=== PATIENT | female | born 1945 | race Caucasian/White ===

== ENCOUNTER → 2017-01-25 | Outpatient (CLI) | payer OTHER ==
[~2017-01-25] MED LIST: DOCU1CAP60 PO; SULF800T23 PO; ULT50X PO
--- NOTE | 2017-01-25 11:38 | DIAGNOSTIC IMAGING REPORT ---
RIGHT KNEE 2 VIEWS HISTORY: Right knee pain and tenderness. Fall. COMPARISON: None. FINDINGS: AP view of the bilateral knees and lateral view of the right knee. Small joint effusion. The bones are osteopenic. No fracture or dislocation within the right knee. Mild osteoarthritis at the medial and patellofemoral compartments. There is also mild osteoarthritis within the medial compartment of the left knee. No radiopaque foreign bodies. IMPRESSION: 1. No fractures within the right knee. 2. Mild osteoarthritis. 3. Small right knee effusion. Electronically signed by: Abner Avina M.D. 01/25/2017 11:36 AM Dictated Date/Time: 01/25/2017 11:35 AM
== END | disposition home or self-care (01) ==
LOC: C.RAD 11:11
PROVIDERS: ATTEND Family Medicine
DX: M25.561 Pain in right knee (principal); M25.461 Effusion, right knee

== ENCOUNTER → 2017-07-17 | Outpatient (CLI) | payer OTHER ==
[~2017-07-17] MED LIST changes: +OPTIRAY 320 IV PRN
--- NOTE | 2017-07-17 08:36 | DIAGNOSTIC IMAGING REPORT ---
CT SCAN OF THE ABDOMEN AND PELVIS COMBO RENAL MASS PROTOCOL CLINICAL HISTORY: Follow-up renal lesion. Abdominal aortic aneurysm. COMPARISON STUDY: Abdominal CT scans dated 04/26/2016, 11/22/2013, and 03/12/2015. TECHNIQUE: Before and following the IV administration of 92 cc of Optiray 320, CT scan of the abdomen and pelvis is performed from the lung bases to the proximal femora using the renal mass protocol. Images are reviewed in the axial, sagittal, and coronal planes. IV contrast was administered without complication. Automated dose control exposure was utilized. FINDINGS: Lung bases: The heart is mildly enlarged and without pericardial effusion. The aortic valve leaflets and coronary arteries are calcified. An 13 mm right lower lobe pulmonary nodule seen on image #29 has only minimally increased in size dating back to 2013. No new pulmonary lesions are seen in either lung base. There is dependent atelectasis and subpleural articulation. No airspace consolidation or pleural effusion is seen at the lung bases. Liver: The contrast-enhanced liver is normal in size, contour, and attenuation. There is no intrahepatic biliary ductal dilatation. The hepatic veins and portal veins are patent. A subcentimeter hypodensity in the right lobe on image #89 is unchanged. Likely represents a cyst but is too small for definitive characterization. Gallbladder: Unremarkable. Spleen: Spleen is normal in size and attenuation. Cystic foci in the spleen measuring up to 1.8 cm are of doubtful significance. Pancreas: Moderately atrophic. Adrenal glands: A 2.7 cm left adrenal adenoma is unchanged. The right adrenal gland is unremarkable. Kidneys: No renal calculi are identified on the unenhanced series. The contrast enhanced kidneys demonstrated cortical atrophy and are without hydronephrosis. The kidneys enhance and excrete symmetrically. No enhancing cortical mass is identified. A 2.6 cm lesion in the upper pole the right kidney seen on image #155 is unchanged. This does not show clear evidence of contrast enhancement and likely represents a complex cyst. This has only minimally increased in size from 2013. Additional subcentimeter cortical hypodensities also likely represent cysts but are too small for definitive characterization. Additionally, there is a fat density lesion arising from the lower pole of the left kidney. This measures approximately 5.5 x 6 x 5 cm. This is similar in appearance to prior examinations and typical in appearance for a large angiomyolipoma. There is no evidence of urothelial lesion within the renal pelvis bilaterally or along the course of ureters. The proximal left ureter is not well opacified by excreted contrast. Abdominal vasculature: There is advanced atherosclerotic calcification of the abdominal aorta. There is diffuse ectasia of the abdominal aorta. Again seen is an aneurysm of the proximal abdominal aorta at and just below the level of the esophageal hiatus. This measures up to 3.7 cm in AP diameter and 4.5 cm in transverse diameter. 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 A small dissection is also seen in the distal abdominal aorta on image #208. These are unchanged from previous. Bowel: Moderate fecal retention is noted throughout the colon. No bowel obstruction is seen. The appendix is well-visualized and normal. Peritoneum: There is no intraperitoneal free air or abdominal ascites. Lymphadenopathy: None. Pelvic viscera: The bladder, uterus, and adnexa are normal as visualized. Skeletal structures: The skeletal structures are osteopenic. There is mild lumbosacral spondylosis. No lytic or blastic lesions are seen. Soft tissues: A 2.1 cm sebaceous cyst is again seen in the lower back on image #70. IMPRESSION: 1. There are no acute infectious or inflammatory findings in the abdomen or pelvis. 2. 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 3. Advanced atherosclerotic disease is again noted. A 3.7 x 4.5 cm aneurysm of the proximal abdominal aorta has modestly increased in size from 04/26/2016. 4. 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 5. Unchanged appearance of a 2.6 cm complex cyst in the upper pole of the right kidney. 6. A pathologically indeterminant 13 mm right lower lobe pulmonary nodule has only minimally increased in size dating back to 2013. A low-grade lesion such as carcinoid could have this appearance. At a minimum, continued follow-up is recommended. 7. Additional findings as above. Electronically signed by: Ed uK M.D. 07/17/2017 8:35 AM Dictated Date/Time: 07/17/2017 8:20 AM
--- NOTE | 2017-07-17 08:38 | DIAGNOSTIC IMAGING REPORT ---
(CHEST) THORAX WITH CLINICAL HISTORY: 72 years-old Female presenting with R91.1 Lung nodule, solitary, Last CT chest 04/26/17.[id number]. TECHNIQUE: Multidetector CT imaging of the chest was performed after the administration of intravenous contrast. IV contrast: 92 mL of Optiray 320. A dose lowering technique was used consistent with the principles of ALARA (as low as reasonably achievable). COMPARISON: 04/26/2016. CT DOSE (mGy.cm): The estimated cumulative dose is 3253.43 mGy.cm. FINDINGS: [employer] Sousaphones topogram: Unremarkable. On soft tissue windows, normal thyroid and thoracic inlet. No axillary, supraclavicular, hilar, or mediastinal lymphadenopathy. Extensive calcified and noncalcified atherosclerotic plaque throughout the thoracoabdominal aorta. There is mild stenosis of the origin of the left subclavian artery (less than 50% stenosis). Extensive mural thrombus/noncalcified intimal plaque along the descending thoracic aorta with tortuosity. Fusiform aneurysmal dilatation of the mid descending thoracic aorta measures up to 4.2 cm in diameter. Additional partially visualized aneurysmal dilatation of the abdominal aorta at the level of the superior mesenteric artery measuring 4.2 cm in diameter. Normal heart size. Coronary artery and aortic valve calcification. No pericardial or pleural effusion. 2.7 cm cystic-appearing lesion in the medial limb of the left adrenal gland, likely adrenal cyst. Upper abdomen otherwise unremarkable. On lung windows, trace apical emphysema greater on the right. Solid 11 mm pulmonary nodule in the central right lower lobe (series 6 image 194) with smooth margins unchanged from prior exam. This nodule appears to contain fairly low-density foci (for example -32 Hounsfield units), which could suggest the presence of macroscopic fat. No new pulmonary nodule or infiltrate. Airways patent. On bone windows, normal osseous structures. IMPRESSION: 1. Stable 11 mm solid pulmonary nodule in the right lower lobe. This has features which could suggest a benign hamartoma. Follow-up per [place] Society 2017 recommendations below. 2. Extensive atherosclerosis with aneurysmal dilatation of the descending thoracic and proximal abdominal aorta. Please refer to below summary of Fleischner Society 2017 recommendations for follow-up of incidental CT nodules (H Janette et al. Guidelines for management of incidental pulmonary nodules detected on CT images: From the Fleischner Society 2017. Radiology 2017; 284: 228-243.) SOLID NODULES Single nodule; size < 6 mm * Low risk patients: No routine follow-up * High risk patients: Optional CT at 12 months Single nodule; size 6-8 mm * Low risk patients: CT at 6-12 months, then consider CT at 18-24 months * High risk patients: CT at 6-12 months, then at 18-24 months Single nodule; size > 8 mm * Either low or high risk patients: Considered CT at 3 months, PET/CT, or tissue sampling Multiple nodules; size < 6 mm * Low risk patients: No routine follow up * High risk patients: Optional CT at 12 months Multiple nodules; size 6-8 mm * Low risk patients: CT at 3-6 months, then consider CT at 18-24 months * High risk patients: CT at 3-6 months, then at 18-24 months Multiple nodules; size > 8 mm * Low risk patients: CT at 3-6 months, then consider at 18-24 months * High risk patients: CT at 3-6 months, then at 18-24 months Note: These guidelines apply to incidental nodules. These guidelines do not apply to patients younger than 35 years, immunocompromised patients, or patients with cancer. * Low risk patients: Minimal or absent history of smoking and/or other known risk factors * High risk patients: History of smoking, exposure to other carcinogens, emphysema, fibrosis, upper lobe location, family history of lung cancer, etc. * If a nodule up to 8 mm is partly solid or is ground glass, further follow-up is required after 24 months to exclude possible slow growing adenocarcinoma. SUBSOLID NODULES Single ground-glass nodule * Nodule size < 6 mm: No routine follow-up * Nodule size > or = 6 mm: CT at 6-12 months to confirm persistence, then CT every 2 years until 5 years Single part-solid nodule * Nodule size < 6 mm: No routine follow-up * Nodules size > or = 6 mm: CT at 3-6 months to confirm persistence. If unchanged and solid component remains < 6 mm, annual CT should be performed for 5 years Multiple nodules * Nodule size < 6 mm: CT at 3-6 months. If stable, consider CT at 2 and 4 years. * Nodules size > or = 6 mm: CT at 3-6 months. Subsequent management based on the most suspicious nodule(s) Electronically signed by: Adarsh Reed M.D. 07/17/2017 8:36 AM Dictated Date/Time: 07/17/2017 8:17 AM
--- NOTE | 2017-07-17 09:28 | DIAGNOSTIC IMAGING REPORT ---
ULTRASOUND OF THE CAROTID ARTERIES CLINICAL HISTORY: Carotid bruit. COMPARISON STUDY: Carotid artery ultrasound dated 08/11/2014. TECHNIQUE: Real-time, grayscale, and color Doppler sonography of the carotid arteries is performed. Images are reviewed in the transverse and longitudinal planes. FINDINGS: Blood pressures were not assessed. The carotid arteries are patent bilaterally and demonstrate antegrade flow. There is minimal atherosclerotic plaque identified. Normal doppler arterial waveforms are seen throughout. There is tortuosity of the internal carotid artery bilaterally. Velocity measurements are listed below. Common carotid peak systolic velocity (cm/sec): RIGHT: 76 LEFT: 66 ICA proximal peak systolic velocity (cm/sec): RIGHT: 53 LEFT: 37 ICA mid peak systolic velocity (cm/sec): RIGHT: 43 LEFT: 37 ICA distal peak systolic velocity (cm/sec): RIGHT: 97 LEFT: 122 ICA/CC peak systolic ratio: RIGHT: 1.3 LEFT: 1.8 Antegrade flow was shown in the vertebral arteries. The external carotid arteries are patent. IMPRESSION: 1. There is no sonographic evidence of hemodynamically significant stenosis in the right or left carotid arterial system. 2. Antegrade flow is shown in the vertebral arteries. 3. Top normal velocities within the distal left internal carotid artery are unchanged and likely related to vascular tortuosity. Electronically signed by: Ed Ku M.D. 07/17/2017 9:27 AM Dictated Date/Time: 07/17/2017 9:24 AM
== END | disposition home or self-care (01) ==
LOC: C.CTS 07:36
PROVIDERS: ATTEND Surgery
DX: R91.1 Solitary pulmonary nodule (principal); I71.4 Abdominal aortic aneurysm, without rupture; R09.89 Other specified symptoms and signs involving the circulatory and respiratory systems; D17.71 Benign lipomatous neoplasm of kidney; N28.1 Cyst of kidney, acquired

== ENCOUNTER → 2018-02-05 | Outpatient (CLI) | payer OTHER ==
[~2018-02-05] MED LIST changes: -OPTIRAY 320 IV PRN
[2018-02-05 10:04] LABS: BLOOD UREA NITROGEN 11 mg/dl (7-18); CALCIUM 9.1 mg/dl (8.5-10.1); CARBON DIOXIDE 27 mmol/L (21-32); CHOLESTEROL 214 mg/dl (0-200); CREATININE 0.83 mg/dl (0.60-1.20); GLUCOSE 90 mg/dl (70-99); LDL CHOLESTEROL CALCULATED 149 mg/dl; POTASSIUM 4.3 mmol/L (3.5-5.1); SODIUM 139 mmol/L (136-145)
== END | disposition home or self-care (01) ==
LOC: C.LAB 08:20
PROVIDERS: ATTEND Family Medicine
DX: Z00.00 Encounter for general adult medical examination without abnormal findings (principal); I71.4 Abdominal aortic aneurysm, without rupture

== ENCOUNTER 2021-07-30 16:09 | Inpatient (IN) ==
[2021-07-30] MEDS ORDERED: SODIUM CHLORIDE 0.9% 500 ML IV ONE (18:31)
[2021-07-30] MEDS ORDERED: ONDANSETRON INJ 2 MG/ML 2 ML VIAL IV STA ×2 (18:31→20:14)
[2021-07-30 18:32] LABS: Basophils # (auto) 0.04 K/uL (0-0.2); Basophils % (auto) 0.3 %; Eosinophils # (auto) 0.26 K/uL (0-0.5); Eosinophils % (auto) 2.2 %; Hemoglobin 9.2 g/dL (12.0-16.0); Immature Granulocytes # (auto) 0.04 K/uL (0.00-0.02); Immature Granulocytes % (auto) 0.3 %; Lymphocytes # (auto) 1.92 K/uL (1.2-3.4); Lymphocytes % (auto) 15.9 %; Mean Corpuscular Hemoglobin 23.8 pg (25-34); Mean Corpuscular Hgb Conc 29.7 g/dL (32-36); Mean Corpuscular Volume 80.1 fL (80-100); Mean Platelet Volume 9.8 fL (7.4-10.4); Monocytes # (auto) 0.87 K/uL (0.11-0.59); Monocytes % (auto) 7.2 %; Neutrophils # (auto) 8.91 K/uL (1.4-6.5); Neutrophils % (auto) 74.1 %; Platelet Count 620 K/uL (130-400); RDW Coefficient of Variation 17.4 % (11.5-14.5); RDW Standard Deviation 51.2 fL (36.4-46.3); Red Blood Count 3.87 M/uL (4.2-5.4); White Blood Count 12.04 K/uL (4.8-10.8)
--- NOTE | 2021-07-30 18:36 | Emergency Department Note ---
Impression & Plan Acute GI bleeding, Diffuse abdominal pain, Acute dehydration ED Provider Note Name: DUDLEY BENITEZ Age: 76 Sex: F Arrives Via: Walk-In Informant: Patient, Daughter ED Provider: Armando Wilcox MD Chief Complaint: Abdominal Pain Impression: As per impressions above Medical Decision Making: Pleasant 76-year-old female with extensive past medical history. She arrives for evaluation of abdominal pain. She is several weeks post thoracic aneurysm endograft repair via the right groin. She notes worsening abdominal pain since then with black and bloody stools. She has also had issues with constipation over the last 2 weeks. On examination she is uncomfortable appearing but does not have peritonitis of her abdomen. She was ordered a CT of the abdomen pelvis which is negative for any acute findings other than inflammation of the right groin consistent with the access site for her endograft. Her labs show mildly worsened anemia from her baseline of 10 however not to the point of anemia she was with her previous GI bleed about 6 months ago. Patient is on Eliquis however she has not had in the last 2 to 3 days due to running out of it. Patient was given IV Protonix, IV fentanyl, fluids for management of GI bleed and pain and dehydration. Given the GI bleed while taking a blood thinner and her severe GI bleed in the past I do feel it is reasonable for hospitalization. I discussed this with the hospitalist who is on board with plan. Is not completely clear why she is having the metabolic pain that she is but there is no evidence of ischemic bowel at this point. Stool is tarry rather than grossly bloody though ischemic colitis is possible. Without other findings I do not think that is required to have a general surgeon evaluate her quite at this point. Prior Medical Record and Triage/Nursing Notes reviewed by Me Additional history obtained from chart Differentials:Appendicitis, infections, diverticulitis, UTI, obstruction, mesenteric ischemia, aortic pathology, inflammatory bowel disease, renal colic, PUD, pancreatitis, biliary pathology, hernia, volvulus, constipation, as well as other pathologies. amongst other pathologies. Vital Signs: reviewed and remarkable for HTN Interventions: Saline lock, normal saline bolus, Protonix IV, fentanyl IV, Zofran IV, normal saline bolus IV Labs:Reviewed and remarkable for anemia Imaging:CT of abdomen pelvis as per radiologist read below. No acute findings other than inflammation within the right groin EKG:Per My Interpretation: Indication Abdominal pain: sinus Tachy 102 bpm, qtc 445. No Ectopy. No Ischemia. Compared to EKG 08/10/19, no significant changes. Consults:Dr Samy BERKOWITZ Hospitalist Plan: Disposition:Hospitalization. Condition: Good History of Present Illness:76-year-old female arrives for evaluation of abdominal pain. Patient notes she had a thoracic aneurysm which was repaired via endograft 3 weeks ago. Shortly after that abdominal pain began. She notes worsening abdominal pain after the last 2 weeks. Associated with increasing swelling and pain. Associated with severe constipation and eventually had a black tarry bowel movement about 1 week ago. Since then she is only had small stool balls that are sticky and black. She notes due to worsening pain and nausea she called her surgeon who offered to call the in [facility] however patient has not gotten this yet. She went to see her PCP today who evaluated her. PCP did a rectal exam and noted bloody stool. Patient was sent to ER for evaluation and management. Patient states she was advised to get a CT scan of the abdomen and pelvis by her PCP. Patient states her pain just continues to get worse. Daughter notes patient continuously is belching but is not vomiting. Patient denies any chest pain, shortness of breath, syncope, headache, neck pain, leg swelling, calf pain, rashes, other bleeding/bruising, vomiting or other symptoms. Patient has had no recent fevers nor runny nose nor sore throat. Patient notes eating makes symptoms worse and just staying still makes them better. She has had no pain or nausea medications prior to arrival. Patient is on Eliquis and has a history of significant GI bleeding in the past. She denies any recent falls, trauma, or injuries. She last took her Eliquis 2 days ago. ROS: See above HPI for pertinent positives & negatives. A total of 10 systems reviewed and were otherwise negative. Past Medical History:See Below Past Surgical History:See Below Family History:See Below Social History:See Below Home Medications:See Below Allergies:fish products Vitals:Blood Pressure: 146/90, Pulse 98, RR 20, T 36.9C, O2 96% on RA Physical Exam: GENERAL: Patient is tired/uncomfortable appearing and in moderate distress. EYES: No scleral icterus, unremarkable pupils. ENT: Mucous membranes moist, no nasal congestion. NECK: No masses appreciated, nomeningismus, trachea is midline. RESPIRATORY: No dyspnea. Clear to auscultation and equal bilaterally. No wheeze, no rhonchi. CARDIOVASCULAR: Regular rate and rhythm.Systolic murmur. No rubs, no gallops appreciated. GASTROINTESTINAL: Hypoactive bowel sounds, diffuse mild TTP worse left upper abdomen. Abdomen soft, no peritonitis.Bowel sounds positive.No masses a ppreciated. BACK: No midline tenderness, no CVA tenderness EXTREMITIES: Normal motion all extremities, no cyanosis, no edema. NEUROLOGIC: Alert and oriented, no acute motor or sensory deficits, no focal weakness, cranial nerves grossly intact. SKIN: No rash, no jaundice, no diaphoresis. PSYCH: Appropriate GCS: 15 ED Course: Times/Reassessments: Patient was initially seen and evaluated in the subwaiting room due to extreme volumes and no available ER beds for evaluations. She was eventually moved to bed and further evaluated. Work-up as above. She is starting to feel better hospitalist consulted and she is on board with hospitalization. Armando Wlicox MD Past Med/Surg History Medical History (Updated 07/31/21 @ 01:12 by Armando Wilcox MD) Age related osteoporosis Anemia Angiomyolipoma of left kidney Ascending aortic aneurysm 6.2cm with Ao arch thrombus 05/06/20 on chronic Eliquis Atrial tachycardia Cardiomyopathy Carotid bruit follows at [facility] COPD, mild COVID-19 virus detected 08/26/20 Degenerative disc disease Elevated IOP Hx of aortic aneurysm reason for eliquis--following with [facility] Lung nodule, solitary Obesity (BMI 30-39.9) On anticoagulant therapy eliquis bid Pulmonary emphysema mild, no inhalers/nebulizer or oxygen Pyelonephritis Smoker unmotivated to quit Spinal stenosis, lumbar region with neurogenic claudication Worst at L4-5 Tobacco abuse counseling Surgical History History of bilateral tubal ligation (1972) History of cataract surgery bilt History of colonoscopy with polypectomy History of incision and drainage (2016) sebaceous cyst mid back History of removal of cyst off kidney--benign History of tooth extraction all teeth History of wisdom tooth extraction Family History Brother Cancer Father Alcoholism Myocardial infarction Sister Crohn's disease DVT of leg (deep venous thrombosis) Mother Hyperlipidemia Daughter Muscular dystrophy Other No family history of adverse response to anesthesia Denies family history of Ovarian cancer Prostate cancer Breast cancer Colorectal cancer Social History Smoking Status: Current every day smoker Cigarettes Per Day: 10 a day; Second Hand Exposure: No; Hx Alcohol Use: No Hx Substance Use: No Preferred Language: Bulgarian Communication Ability: Effective Visual Impairment: No Limitations Hearing Ability: Normal Restaurant Inspector Required: No Beliefs That Will Affect Care: None Current Living Situation: Alone current occupational status: retired Feels Safe at Home: Yes Childhood Exposure to Second-Hand Smoke: Yes Dental Care, Regularly: No Physical Activity Frequency: Daily Physical Activity Frequency Comment: has dentures Seatbelt Use: always Sunscreen Use: No Assistive Devices: Denture - Upper, Denture - Lower and Glasses Allergies Allergies Allergy/AdvReac Type Severity Reaction Status Date / Time Fish Containing Products Allergy Severe SWELLING Verified 07/30/21 20:49 THROAT Home Meds Home Medications Medication Instructions Recorded Confirmed ferrous sulfate 325 mg (65 mg 325 mg PO QAM 08/17/20 07/30/21 iron) tablet apixaban 5 mg tablet (Eliquis) 5 mg PO BID tab 08/20/20 07/30/21 aspirin 81 mg tablet,delayed 81 mg PO QAM 08/20/20 07/30/21 release (Adult Aspirin Regimen) atorvastatin 40 mg tablet 40 mg PO QAM 08/20/20 07/30/21 lisinopril 10 mg tablet 10 mg PO QAM 08/25/20 07/30/21 nitroglycerin 0.4 % (w/w) rectal 1 inch NH BID PRN 08/25/20 07/30/21 ointment Previous Rx's Medication Instructions Recorded hydrocortisone 2.5 % topical cream 1 applic NH DAILY PRN #30 g 07/30/21 with perineal applicator metoprolol tartrate 50 mg tablet 50 mg PO BID #60 tab 07/30/21 Results & Data (ED) Vital Signs Vital Signs - 24 hr 07/30/21 16:28 07/30/21 20:45 07/30/21 20:50 Temperature 36.9 C Temperature Source Oral Pulse Rate 98 H 109 H 112 H Pulse Rate from SpO2 Sensor 109 H 107 H Pulse Rhythm Regular Pulse Strength Normal Respiratory Rate 20 18 18 Respiratory Effort / Characteristics Non-Labored Spontaneous Respiratory Depth Normal Respiratory Pattern Regular Blood Pressure 146/90 H Blood Pressure Mean 108 Blood Pressure Position Sitting Pulse Oximetry 96 93 93 Oxygen Delivery Method Room Air Sepsis Recent Fever Within 48 Hours No Sepsis New/Unexplained Change in Mental Status No Sepsis Action Taken by Nursing No Action Required 07/30/21 20:56 07/30/21 21:00 07/30/21 21:10 Temperature Temperature Source Pulse Rate 105 H 108 H 105 H Pulse Rate from SpO2 Sensor 105 H 108 H 106 H Pulse Rhythm Pulse Strength Respiratory Rate 15 18 30 H Respiratory Effort / Characteristics Respiratory Depth Respiratory Pattern Blood Pressure 165/89 H 154/92 H Blood Pressure Mean 114 112 Blood Pressure Position Pulse Oximetry 91 96 96 Oxygen Delivery Method Sepsis Recent Fever Within 48 Hours Sepsis New/Unexplained Change in Mental Status Sepsis Action Taken by Nursing 07/30/21 21:20 Temperature Temperature Source Pulse Rate 104 H Pulse Rate from SpO2 Sensor 103 H Pulse Rhythm Pulse Strength Respiratory Rate 18 Respiratory Effort / Characteristics Respiratory Depth Respiratory Pattern Blood Pressure Blood Pressure Mean Blood Pressure Position Pulse Oximetry 97 Oxygen Delivery Method Sepsis Recent Fever Within 48 Hours Sepsis New/Unexplained Change in Mental Status Sepsis Action Taken by Nursing Laboratory Data Result diagrams: 07/30/21 18:11 07/30/21 18:11 Lab Results 07/30/21 07/30/21 07/30/21 Range/Units 18:11 18:11 20:57 WBC 12.04 H (4.8-10.8) K/uL RBC 3.87 L (4.2-5.4) M/uL Hgb 9.2 L (12.0-16.0) g/dL Hct 31.0 L (37-47) % MCV 80.1 (80-100) fL MCH 23.8 L (25-34) pg MCHC 29.7 L (32-36) g/dL RDW Std Deviation 51.2 H (36.4-46.3) fL RDW Coeff of Jose Ramon 17.4 H (11.5-14.5) % Plt Count 620 H (130-400) K/uL MPV 9.8 (7.4-10.4) fL Immature Gran % (Auto) 0.3 % Neut % (Auto) 74.1 % Lymph % (Auto) 15.9 % Pacific % (Auto) 7.2 % Eos % (Auto) 2.2 % Baso % (Auto) 0.3 % Neut # (Auto) 8.91 H (1.4-6.5) K/uL Lymph # (Auto) 1.92 (1.2-3.4) K/uL Pacific # (Auto) 0.87 H (0.11-0.59) K/uL Eos # (Auto) 0.26 (0-0.5) K/uL Baso # (Auto) 0.04 (0-0.2) K/uL Immature Gran # (Auto) 0.04 H (0.00-0.02) K/uL Sodium 139 (136-145) mmol/L Potassium 4.5 (3.5-5.1) mmol/L Chloride 108 H (98-107) mmol/L Carbon Dioxide 24 (21-32) mmol/L Anion Gap 7 (3-11) BUN 25 H (6-23) mg/dl Creatinine 1.23 H (0.6-1.2) mg/dl Est Cr Clr Drug Dosing 38.4 ml/min Est GFR ( Amer) 48.7 ml/min Est GFR (Non-Af Amer) 42.0 ml/min BUN/Creatinine Ratio 20.3 H (10-20) Glucose 102 H (70-99(Fasting)) mg/dl Calcium 9.5 (8.5-10.1) mg/dl Total Bilirubin 0.2 (0.2-1.0) mg/dl AST 9 L (13-39) U/L ALT 8 (7-52) U/L Alkaline Phosphatase 89 (34-104) U/L Total Protein 7.2 (6.0-8.3) gm/dl Albumin 3.4 (3.4-5.0) gm/dl Globulin 3.8 (2.5-4.0) gm/dl Albumin/Globulin Ratio 0.9 (0.9-2) Lipase 15 (11-82) U/L SARS-CoV-2, RNA, NAAT NEGATIVE (NEGATIVE) Administered Medications Pantoprazole Sodium 40 mg/ (Syringe) 10 mls @ 5 mls/min IV BID RADHA Stop: 08/30/21 00:03 Last Admin: 07/31/21 00:45 Dose: 5 mls/min Documented by: [id number] Lactated Ringer's (Lr) 1,000 mls @ 80 mls/hr IV .[id number] RADHA Stop: 07/31/21 12:33 Last Admin: 07/31/21 00:40 Dose: 80 mls/hr Documented by: [id number] Morphine Sulfate (Morphine Sulfate 2 Mg/Ml Carp) 2 mg IV Q4H PRN PRN Reason: Pain Stop: 08/14/21 00:03 Last Admin: 07/31/21 00:40 Dose: 2 mg Documented by: [id number] Discontinued Medications Fentanyl Citrate (Fentanyl Citrate 100 Mcg/2 Ml Vial) 50 mcg IV NOW STA Stop: 07/30/21 20:15 Last Admin: 07/30/21 20:44 Dose: 50 mcg Documented by: [id number] Sodium Chloride (Nss) 500 mls @ 999 mls/hr IV .Q31M ONE Stop: 07/30/21 19:01 Last Infusion: 07/30/21 21:31 Dose: 0 mls/hr Documented by: [id number] Admin: 07/30/21 20:45 Dose: 999 mls/hr Documented by: [id number] Pantoprazole Sodium 80 mg/ (Dextrose) 100 mls @ 400 mls/hr IV ONE STA Stop: 07/30/21 20:28 Last Infusion: 07/30/21 21:31 Dose: 0 mls/hr Documented by: [id number] Admin: 07/30/21 20:50 Dose: 400 mls/hr Documented by: [id number] Ioversol (Optiray 320 100ml) 92 ml IV ONCE ONE Stop: 07/30/21 19:36 Last Admin: 07/30/21 19:36 Dose: 92 ml Documented by: [id number] Ondansetron HCl (Ondansetron Inj 2 Mg/Ml 2 Ml Vial) 4 mg IV NOW STA Stop: 07/30/21 18:32 Last Admin: 07/30/21 20:44 Dose: 4 mg Documented by: [id number] Ondansetron HCl (Ondansetron Inj 2 Mg/Ml 2 Ml Vial) 4 mg IV NOW STA Stop: 07/30/21 20:15 Last Admin: 07/30/21 21:18 Dose: Not Given Documented by: [id number] Imaging Data Radiologist's Impression: Abdomen/Pelvis CT 07/30/21 18:31 CT abd pelvis IV con only CLINICAL HISTORY: 2 wks a/p pain, constipat. S/p Chest Aortic stent TECHNIQUE: Helical axial images of the abdomen and pelvis were obtained and displayed. Automated dose lowering techniques and/or adjustment according to patient size were utilized for this exam. This exam was performed with intravenous contrast. COMPARISON: Comparison is made to CT abdomen pelvis 08/08/2019 FINDINGS: Lower chest: Partially lesion a previously noted left pulmonary nodule. Previously noted right lower lobe nodule is unchanged. This contains foci of fat and is favored to represent a hamartoma. Liver: Unremarkable. No focal lesions are seen. Gallbladder and biliary tree: No calcified gallstones. Normal caliber wall. No intra- or extrahepatic biliary ductal dilation. Pancreas: Unremarkable, no focal lesions. Spleen: Unremarkable. Adrenals: A left adrenal adenoma is unchanged. Kidneys and ureters: Previously noted renal cysts are stable. Angiomyolipoma arises from the left kidney inferior pole. Bladder: Unremarkable. Reproductive organs: Unremarkable. Bowel: Unremarkable. Lymph nodes Retroperitoneal: Unremarkable. Mesenteric: Unremarkable. Pelvic: Unremarkable. Peritoneum: Normal. Vessels: There is an upper abdominal aortic aneurysm measuring 48 mm in diameter . This is similar in appearance to prior exam. Smaller aneurysmal dilations are noted lower in the abdomen. Abdominal wall: Fat stranding is seen in the right groin area, new from prior exam. Bones: Degenerative changes in the visualized spine. IMPRESSION: 1. Fat stranding seen in the right groin. Correlation with trauma or infection is recommended. 2. Redemonstration of aortic aneurysms measuring up to 40 mm. ACT 112: Negative or not required by law. Electronically signed by: Sushil Molina M.D. 07/30/2021 7:54 PM Discharge Plan Visit Data Chief Complaint: Abdominal Pain Stated Complaint: UPSET STOMACH, STOMACH PAIN ED Provider: Armando Wilcox Discharge Problem: Acute GI bleeding, Diffuse abdominal pain, Acute dehydration Discharge Instructions Interventions: ED Discharge Assessment Last Done: 07/31/21 00:55
[2021-07-30 18:54] LABS: Albumin Globulin Ratio 0.9 (0.9-2); Albumin Level 3.4 gm/dl (3.4-5.0); BUN Creatinine Ratio 20.3 (10-20); Bilirubin,Total 0.2 mg/dl (0.2-1.0); Calcium 9.5 mg/dl (8.5-10.1); Creatinine Clr Calc Pharmacy 38.4 ml/min; Est GFR (African American) 48.7 ml/min; Globulin 3.8 gm/dl (2.5-4.0); Potassium 4.5 mmol/L (3.5-5.1); Total Protein 7.2 gm/dl (6.0-8.3)
[2021-07-30] MEDS ORDERED: OPTIRAY 320 100ml IV ONE (19:35)
--- NOTE | 2021-07-30 19:55 | CT Scan Report ---
CT abd pelvis IV con only CLINICAL HISTORY: 2 wks a/p pain, constipat. S/p Chest Aortic stent TECHNIQUE: Helical axial images of the abdomen and pelvis were obtained and displayed. Automated dose lowering techniques and/or adjustment according to patient size were utilized for this exam. This e xam was performed with intravenous contrast. COMPARISON: Comparison is made to CT abdomen pelvis 08/08/2019 FINDINGS: Lower chest: Partially lesion a previously noted left pulmonary nodule. Previously noted right lower lobe nodule is unchanged. This contains foci of fat and is favored to represent a hamartoma. Liver: Unremarkable. No focal lesions are seen. Gallbladder and biliary tree: No calcified gallstones. Normal caliber wall. No intra- or extrahepatic biliary ductal dilation. Pancreas: Unremarkable, no focal lesions. Spleen: Unremarkable. Adrenals: A left adrenal adenoma is unchanged. Kidneys and ureters: Previously noted renal cysts are stable. Angiomyolipoma arises from the left kid luana inferior pole. Bladder: Unremarkable. Reproductive organs: Unremarkable. Bowel: Unremarkable. Lymph nodes Retroperitoneal: Unremarkable. Mesenteric: Unremarkable. Pelvic: Unremarkable. Peritoneum: Normal. Vessels: There is an upper abdominal aortic aneurysm measuring 48 mm in diameter. This is similar in appearance to prior exam. Smaller aneurysmal dilations are noted lower in the abdomen. Abdominal wall: Fat stranding is seen in the right groin area, new from prior exam. Bones: Degenerative changes in the visualized spine. IMPRESSION: 1. Fat stranding seen in the right groin. Correlation with trauma or infection is recommended. 2. Redemonstration of aortic aneurysms measuring up to 40 mm. ACT 112: Negative or not required by law. Electronically signed by: Sushil Molina M.D. 07/30/2021 7:54 PM
[2021-07-30] MEDS ORDERED: fentaNYL citrate 100 MCG/2 ML VIAL IV STA (20:14)
[2021-07-30] MEDS ORDERED: PANTOprazole 80 MG in DEXTROSE 5% 100 ML IV STA (20:14)
[2021-07-31] MEDS ORDERED: LACTATED RINGER'S 1,000 ML IV SCH (00:04)
[2021-07-31] MEDS: MoRPHine SULFATE 2 MG/ML CARP IV PRN ×2 (00:40→14:45)
[2021-07-31] MEDS: PANTOprazole 40 MG in SYRINGE 0 ML IV SCH ×3 (00:45→20:25)
[2021-07-31 01:22] LABS: Basophils # (auto) 0.07 K/uL (0-0.2); Basophils % (auto) 0.6 %; Eosinophils # (auto) 0.28 K/uL (0-0.5); Eosinophils % (auto) 2.6 %; Hematocrit (blood only) 29.2 % (37-47); Hemoglobin 8.7 g/dL (12.0-16.0); Immature Granulocytes # (auto) 0.05 K/uL (0.00-0.02); Immature Granulocytes % (auto) 0.5 %; Lymphocytes # (auto) 1.47 K/uL (1.2-3.4); Lymphocytes % (auto) 13.6 %; Mean Corpuscular Hgb Conc 29.8 g/dL (32-36); Mean Corpuscular Volume 80.4 fL (80-100); Mean Platelet Volume 9.2 fL (7.4-10.4); Monocytes # (auto) 1.11 K/uL (0.11-0.59); Monocytes % (auto) 10.3 %; Neutrophils # (auto) 7.83 K/uL (1.4-6.5); Neutrophils % (auto) 72.4 %; Platelet Count 511 K/uL (130-400); RDW Coefficient of Variation 17.3 % (11.5-14.5); RDW Standard Deviation 51.4 fL (36.4-46.3); Red Blood Count 3.63 M/uL (4.2-5.4); White Blood Count 10.81 K/uL (4.8-10.8)
[2021-07-31 02:13] LABS: Ovalocytes 1+; Spherocytes 1+
--- NOTE | 2021-07-31 02:50 | History & Physical Report ---
Date of Service July 31, 2021 Assessment & Plan (1) Diffuse abdominal pain: Plan: Unclear etiology. Labs are largely unremarkable. CT with no acute intra- abdominal findings -Lactate WNL as are LFTs, Lipase -Pain control -Zofran PRN -IVF (2) GI bleeding: Plan: Concern for GIB. Patient reports black BMs. Presnetly afebrile, HD stable. Hgb of 9.2 -Continue protonix -Maintain 2 large PIVs -Trend CBC -Hemoccult stool -GI consultation appreciated -Hold Apixaban and ASA -Hold Metoprolol Lisinopril (3) Ascending aortic aneurysm: Plan: s/p TEVAR performed on 07/05/21 - St[facility] ([facility]) Anemia: Plan: Monitor Admission and Anticipated Discharge Date Admission Date: July 30, 2021 History of Present Illness Chief Complaint: abdominal pain Primary Care Provider: Gillian Amador MD Hafsa Tate is a 76yo female with history of COPD, Anemia, atrial tachycardia presenting with abdominal pain and nausea. She was seen by her PCP today with theses complaints and subsequently sent to the ER. Her abdominal pain is located in the upper abdomen, band-like in nature and has been ongoing x 1.5 weeks. Severe 9/10, sharp and stabbing. She has also had nausea x 1.5 weeks with several episodes of non-bloody vomiting. She has had severe constipation for the last 2.5 weeks and has been taking Miralax and dulcolax. She has had several large black BMs. She has had some decreased oral intake and poor po intake. Otherwise denies chest pain, cough, SOB, dizziness, lightheadedness or syncope. Patient has history of diffuse aortic enlargement which was being followed with routine screening. Scan from 04/2020 with increase in proximal descending size. TEVAR was being planned, however, she was found to have a mobile aortic arch echodensity near the origin of the subclavian artery most likely secondary to t hrombus. She was started on Eliquis. She had a TEVAR performed on 07/05/21 which was well tolerated. No complications identified. Patient has received Covid-19 vaccination x 2 as well as Booster ER Course: Afebrile, HD stable, NAD. Allergies Allergy/AdvReac Type Severity Reaction Status Date / Time Fish Containing Products Allergy Severe SWELLING Verified 07/30/21 20:49 THROAT Home Medications Medication Instructions Recorded Confirmed Type ferrous sulfate 325 mg (65 mg 325 mg PO QAM 08/17/20 07/30/21 History iron) tablet apixaban 5 mg tablet (Eliquis) 5 mg PO BID tab 08/20/20 07/30/21 History aspirin 81 mg tablet,delayed 81 mg PO QAM 08/20/20 07/30/21 History release (Adult Aspirin Regimen) atorvastatin 40 mg tablet 40 mg PO QAM 08/20/20 07/30/21 History lisinopril 10 mg tablet 10 mg PO QAM 08/25/20 07/30/21 History nitroglycerin 0.4 % (w/w) rectal 1 inch [place] BID PRN 08/25/20 07/30/21 History ointment hydrocortisone 2.5 % topical cream 1 applic [place] DAILY PRN #30 g 07/30/21 07/30/21 Rx with perineal applicator metoprolol tartrate 50 mg tablet 50 mg PO BID #60 tab 07/30/21 07/30/21 Rx Past Med/Surg History Medical History (Updated 07/31/21 @ 01:12 by Armando Wilcox MD) Age related osteoporosis Anemia Angiomyolipoma of left kidney Ascending aortic aneurysm 6.2cm with Ao arch thrombus 05/06/20 on chronic Eliquis Atrial tachycardia Cardiomyopathy Carotid bruit follows at [facility] COPD, mild COVID-19 virus detected 08/26/20 Degenerative disc disease Elevated IOP Hx of aortic aneurysm reason for eliquis--following with [facility] Lung nodule, solitary Obesity (BMI 30-39.9) On anticoagulant therapy eliquis bid Pulmonary emphysema mild, no inhalers/nebulizer or oxygen Pyelonephritis Smoker unmotivated to quit Spinal stenosis, lumbar region with neurogenic claudication Worst at L4-5 Tobacco abuse counseling Surgical History History of bilateral tubal ligation (1972) History of cataract surgery bilt History of colonoscopy with polypectomy History of incision and drainage (2016) sebaceous cyst mid back History of removal of cyst off kidney--benign History of tooth extraction all teeth History of wisdom tooth extraction Family History Brother Cancer Father Alcoholism Myocardial infarction Sister Crohn's disease DVT of leg (deep venous thrombosis) Mother Hyperlipidemia Daughter Muscular dystrophy Other No family history of adverse response to anesthesia Denies family history of Ovarian cancer Prostate cancer Breast cancer Colorectal cancer Social History Smoking Status: Current every day smoker Cigarettes Per Day: 10 a day; Second Hand Exposure: No; Hx Alcohol Use: No Hx Substance Use: No Preferred Language: Polish Communication Ability: Effective Visual Impairment: No Limitations Hearing Ability: Normal 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 Beliefs That Will Affect Care: None Current Living Situation: Alone current occupational status: retired Feels Safe at Home: Yes Childhood Exposure to Second-Hand Smoke: Yes Dental Care, Regularly: No Physical Activity Frequency: Daily Physical Activity Frequency Comment: has dentures Seatbelt Use: always Sunscreen Use: No Assistive Devices: Denture - Upper, Denture - Lower and Glasses Review of Systems Review of Systems: All systems reviewed & are unremarkable except as noted in HPI & below Physical Exam Physical Exam: General: patient resting comfortably, NAD, non-toxic in appearance, AA&O x 4 Skin: warm, dry, intact, no rashes or lesions HEENT: NC/AT, PERRL, EOMI, anicteric sclera, conjunctiva without injection, external ear normal to inspection and nontender, nares patent, moist mucus membranes, dentition intact, no oropharyngeal lesions, neck supple, trachea midline, no LAD, no thyromegaly, no JVD Heart: +S1/S2, regular, 3/6 ROSELINE across precordium Lungs: equal air entry bilaterally, no rales/rhonchi/wheezes Abd: +BS, soft, tender with palpation of epigastric region and upper abdomen, no rebound/guarding/peritoneal signs Ext: warm, 2+ pulses in UE/LE bilaterally, no clubbing/cyanosis or edema, vascular access site in right groin site well approximated, no bleeding/erythema or dehiscence. Nontender. Firm to palpation. Neuro: nonfocal, patient AA&O x 4, speech intact, no facial droop, moving all extremities on command with equal strength 5/5 Results & Data Results & Data ([facility]) Vital Signs (Past 12 Hours) Vital Signs Temp Pulse Resp BP Pulse Ox 02/11/22 23:30 92 H 14 150/77 H 98 07/30/21 23:00 93 H 16 139/87 98 07/30/21 22:30 96 H 19 138/80 96 07/30/21 22:00 103 H 18 140/75 99 07/30/21 21:40 99 H 18 98 07/30/21 21:30 98 H 20 145/73 H 97 07/30/21 21:20 104 H 18 97 07/30/21 21:10 105 H 30 H 96 07/30/21 21:00 108 H 18 154/92 H 96 07/30/21 20:56 105 H 15 165/89 H 91 07/30/21 20:50 112 H 18 93 07/30/21 20:45 109 H 18 93 07/30/21 16:28 36.9 C 98 H 20 146/90 H 96 Laboratory Results Laboratory Results WBC 10.81 K/uL (4.8-10.8) H 07/31/21 01:15 RBC 3.63 M/uL (4.2-5.4) L 07/31/21 01:15 Hgb 8.7 g/dL (12.0-16.0) L 07/31/21 01:15 Hct 29.2 % (37-47) L 07/31/21 01:15 MCV 80.4 fL (80-100) 07/31/21 01:15 MCH 24.0 pg (25-34) L 07/31/21 01:15 MCHC 29.8 g/dL (32-36) L 07/31/21 01:15 RDW Std Deviation 51.4 fL (36.4-46.3) H 07/31/21 01:15 RDW Coeff of Jose Ramon 17.3 % (11.5-14.5) H 07/31/21 01:15 Plt Count 511 K/uL (130-400) H 07/31/21 01:15 MPV 9.2 fL (7.4-10.4) 07/31/21 01:15 Immature Gran % (Auto) 0.5 % 07/31/21 01:15 Neut % (Auto) 72.4 % 07/31/21 01:15 Lymph % (Auto) 13.6 % 07/31/21 01:15 [place] % (Auto) 10.3 % 07/31/21 01:15 Eos % (Auto) 2.6 % 07/31/21 01:15 Baso % (Auto) 0.6 % 07/31/21 01:15 Neut # (Auto) 7.83 K/uL (1.4-6.5) H 07/31/21 01:15 Lymph # (Auto) 1.47 K/uL (1.2-3.4) 07/31/21 01:15 [place] # (Auto) 1.11 K/uL (0.11-0.59) H 07/31/21 01:15 Eos # (Auto) 0.28 K/uL (0-0.5) 07/31/21 01:15 Baso # (Auto) 0.07 K/uL (0-0.2) 07/31/21 01:15 Immature Gran # (Auto) 0.05 K/uL (0.00-0.02) H 07/31/21 01:15 Spherocytes 1+ 07/31/21 01:15 Ovalocytes 1+ 07/31/21 01:15 Sodium 139 mmol/L (136-145) 07/30/21 18:11 Potassium 4.5 mmol/L (3.5-5.1) 07/30/21 18:11 Chloride 108 mmol/L (98-107) H 07/30/21 18:11 Carbon Dioxide 24 mmol/L (21-32) 07/30/21 18:11 Anion Gap 7 (3-11) 07/30/21 18:11 BUN 25 mg/dl (6-23) H 07/30/21 18:11 Creatinine 1.23 mg/dl (0.6-1.2) H 07/30/21 18:11 Est Cr Clr Drug Dosing 38.4 ml/min 07/30/21 18:11 Est GFR ( Amer) 48.7 ml/min 07/30/21 18:11 Est GFR (Non-Af Amer) 42.0 ml/min 07/30/21 18:11 BUN/Creatinine Ratio 20.3 (10-20) H 07/30/21 18:11 Glucose 102 mg/dl (70-99(Fasting)) H 07/30/21 18:11 Lactate 0.5 mmol/L (0.4-2.0) 07/31/21 01:15 Calcium 9.5 mg/dl (8.5-10.1) 07/30/21 18:11 Total Bilirubin 0.2 mg/dl (0.2-1.0) 07/30/21 18:11 AST 9 U/L (13-39) L 07/30/21 18:11 ALT 8 U/L (7-52) 07/30/21 18:11 Alkaline Phosphatase 89 U/L (34-104) 07/30/21 18:11 Total Protein 7.2 gm/dl (6.0-8.3) 07/30/21 18:11 Albumin 3.4 gm/dl (3.4-5.0) 07/30/21 18:11 Globulin 3.8 gm/dl (2.5-4.0) 07/30/21 18:11 Albumin/Globulin Ratio 0.9 (0.9-2) 07/30/21 18:11 Lipase 15 U/L (11-82) 07/30/21 18:11 SARS-CoV-2, RNA, NAAT NEGATIVE (NEGATIVE) 07/30/21 20:57 Impressions Abdomen/Pelvis CT 07/30/21 18:31 CT abd pelvis IV con only CLINICAL HISTORY: 2 wks a/p pain, constipat. S/p Chest Aortic stent TECHNIQUE: Helical axial images of the abdomen and pelvis were obtained and displayed. Automated dose lowering techniques and/or adjustment according to patient size were utilized for this exam. This exam was performed with in travenous contrast. COMPARISON: Comparison is made to CT abdomen pelvis 08/08/2019 FINDINGS: Lower chest: Partially lesion a previously noted left pulmonary nodule. Previously noted right lower lobe nodule is unchanged. This contains foci of fat and is favored to represent a hamartoma. Liver: Unremarkable. No focal lesions are seen. Gallbladder and biliary tree: No calcified gallstones. Normal caliber wall. No intra- or extrahepatic biliary ductal dilation. Pancreas: Unremarkable, no focal lesions. Spleen: Unremarkable. Adrenals: A left adrenal adenoma is unchanged. Kidneys and ureters: Previously noted renal cysts are stable. Angiomyolipoma arises from the left kidney inferior pole. Bladder: Unremarkable. Reproductive organs: Unremarkable. Bowel: Unremarkable. Lymph nodes Retroperitoneal: Unremarkable. Mesenteric: Unremarkable. Pelvic: Unremarkable. Peritoneum: Normal. Vessels: There is an upper abdominal aortic aneurysm measuring 48 mm in diameter. This is similar in appearance to prior exam. Smaller aneurysmal dilations are noted lower in the abdomen. Abdominal wall: Fat stranding is seen in the right groin area, new from prior exam. Bones: Degenerative changes in the visualized spine. IMPRESSION: 1. Fat stranding seen in the right groin. Correlation with trauma or infection is recommended. 2. Redemonstration of aortic aneurysms measuring up to 40 mm. ACT 112: Negative or not required by law. Electronically signed by: Sushil Molina M.D. 07/30/2021 7:54 PM Code Status & VTE Plan VTE Prophylaxis Plan VTE Prophylaxis will be ordered: Yes PG Care Time/CCT Total # of Minutes Spent Total Time Spent with Patient: Total time spent is greater than 50% in coordination of care (as documented) at patient's floor/unit and/or counseling patient: Coding Level of Care Code INT OBSERVATION CARE 50M LVL 2 Diagnoses Diffuse abdominal pain R10.84 Ascending aortic aneurysm I71.2 GI bleeding K62.5 GI bleed type/associated pathology: anorectal hemorrhage Anemia D50.0 Anemia type: iron deficiency Iron deficiency anemia type: chronic blood loss (1) GI bleeding GI bleed type/associated pathology: anorectal hemorrhage Qualified Code(s): K62.5 - Hemorrhage of anus and rectum (2) Anemia Anemia type: iron deficiency Iron deficiency anemia type: chronic blood loss Qualified Code(s): D50.0 - Iron deficiency anemia secondary to blood loss (chronic)
[2021-07-31 07:44] LABS: Basophils # (auto) 0.04 K/uL (0-0.2); Basophils % (auto) 0.5 %; Eosinophils # (auto) 0.23 K/uL (0-0.5); Eosinophils % (auto) 2.7 %; Hematocrit (blood only) 28.9 % (37-47); Hemoglobin 8.4 g/dL (12.0-16.0); Immature Granulocytes # (auto) 0.03 K/uL (0.00-0.02); Immature Granulocytes % (auto) 0.3 %; Lymphocytes # (auto) 1.06 K/uL (1.2-3.4); Lymphocytes % (auto) 12.4 %; Mean Corpuscular Hemoglobin 23.4 pg (25-34); Mean Corpuscular Hgb Conc 29.1 g/dL (32-36); Mean Corpuscular Volume 80.5 fL (80-100); Mean Platelet Volume 9.6 fL (7.4-10.4); Monocytes # (auto) 0.85 K/uL (0.11-0.59); Monocytes % (auto) 9.9 %; Neutrophils # (auto) 6.37 K/uL (1.4-6.5); Neutrophils % (auto) 74.2 %; Platelet Count 491 K/uL (130-400); RDW Coefficient of Variation 17.4 % (11.5-14.5); RDW Standard Deviation 51.3 fL (36.4-46.3); Red Blood Count 3.59 M/uL (4.2-5.4); White Blood Count 8.58 K/uL (4.8-10.8)
[2021-07-31] MEDS: ATORVASTATIN 40 MG TAB PO SCH (07:45)
[2021-07-31 08:08] LABS: Albumin Level 2.9 gm/dl (3.4-5.0); BUN Creatinine Ratio 18.1 (10-20); Bilirubin,Total 0.2 mg/dl (0.2-1.0); Calcium 9.1 mg/dl (8.5-10.1); Creatinine Clr Calc Pharmacy 40.5 ml/min; Est GFR (African American) 52.2 ml/min; Est GFR (Non-African American) 45.1 ml/min; Potassium 4.3 mmol/L (3.5-5.1); Total Protein 6.2 gm/dl (6.0-8.3)
[2021-07-31 10:59] LABS: Basophils # (auto) 0.04 K/uL (0-0.2); Basophils % (auto) 0.4 %; Eosinophils # (auto) 0.26 K/uL (0-0.5); Eosinophils % (auto) 2.6 %; Hemoglobin 8.6 g/dL (12.0-16.0); Immature Granulocytes # (auto) 0.08 K/uL (0.00-0.02); Immature Granulocytes % (auto) 0.8 %; Lymphocytes # (auto) 1.07 K/uL (1.2-3.4); Lymphocytes % (auto) 10.6 %; Mean Corpuscular Hemoglobin 23.6 pg (25-34); Mean Corpuscular Hgb Conc 29.7 g/dL (32-36); Mean Corpuscular Volume 79.7 fL (80-100); Mean Platelet Volume 9.5 fL (7.4-10.4); Monocytes # (auto) 0.93 K/uL (0.11-0.59); Monocytes % (auto) 9.2 %; Neutrophils # (auto) 7.76 K/uL (1.4-6.5); Neutrophils % (auto) 76.4 %; Platelet Count 483 K/uL (130-400); RDW Coefficient of Variation 17.1 % (11.5-14.5); RDW Standard Deviation 50.8 fL (36.4-46.3); Red Blood Count 3.64 M/uL (4.2-5.4); White Blood Count 10.14 K/uL (4.8-10.8)
--- NOTE | 2021-07-31 11:15 | Communication Note ---
Date of Service: July 31, 2021 Patient admitted and seen the same day therefore I will not be billing for this encounter. No significant bowel movement since admission per patient. No nausea but also been kept NPO pending GI opinion regarding EGD. Hgb stable. No dizziness, chest pain or shortness of breath. Continued epigastric pain. Acute GI bleed with melena - agree with pantoprazole 40mg IV BID. Will cut down to daily CBC. EGD per GI recommendations. Epigastric pain - possibly related to above but more likely constipation induced. Start on clear liquids per GI recommmendations and will start MiraLAX TID until patient has large BM.
[2021-07-31 12:25] LABS: Appearance Urine Clear (Clear); Bilirubin Urine Negative (Negative); Blood Urine Negative (Negative); Color Urine Yellow; Epithelial Cell Urine Auto 20-30 /lpf (0-5); Glucose Urine UA Negative (Negative); Ketones Urine Negative (Negative); Leukocyte Esterase Urine Negative (Negative); Nitrite Urine Negative (Negative); Protein Urine Trace (Negative); Specific Gravity Urine 1.026 (1.000-1.030); Urobilinogen Urine Negative (Negative)
[2021-07-31 12:44] LABS: Bacteria Urine Automated 1+ (Negative); RBC Urine Automated 0-4 /hpf (0-4); Uric Acid Crystals Urine Present (None Prsent)
--- NOTE | 2021-07-31 13:43 | Gastrointestinal Consultation ---
Date of Consultation July 31, 2021 Assessment & Plan (1) Anemia: No evidence of ongoing n active GI bleeding. Monitor H/H IV PPI. Plan for EGD on Wednesday 08/02 to r/o PUD. Can have clear liquid diet till Monday midnight. Avoid NSAIDs. Use Miralax for constipation. Obtain Ultrasound abdomen to r/o gallstones disease. (2) Black stool: (3) Diffuse abdominal pain: History of Present Illness Reason for Consultation: Possible GIB Attending Physician: Steve Saeed MD History of Present Illness 76 years old female patient with medical comorbids of Aortic aneurysm, on Eliquis post TAVR, chronic MARBELLA, COPD, HTN, presented with black stool and abdominal pain hence GI is consulted. Per patient her resolved already yesterday. No BM since admission. No nausea, vomiting, diarrhea or hematemesis. Has chronic constipation and intermittent rectal bleeding due to her hemorrhoids. Last colonoscopy around 6 months ago with no pathology. Never had an EGD. CT scan abdomen unremarkable. H/H stable, BUN normal. Allergies Allergy/AdvReac Type Severity Reaction Status Date / Time Fish Containing Products Allergy Severe SWELLING Verified 07/30/21 20:49 THROAT Home Medications Medication Instructions Recorded Confirmed Type ferrous sulfate 325 mg (65 mg 325 mg PO QAM 08/17/20 07/30/21 History iron) tablet apixaban 5 mg tablet (Eliquis) 5 mg PO BID tab 08/20/20 07/30/21 History aspirin 81 mg tablet,delayed 81 mg PO QAM 08/20/20 07/30/21 History release (Adult Aspirin Regimen) atorvastatin 40 mg tablet 40 mg PO QAM 08/20/20 07/30/21 History lisinopril 10 mg tablet 10 mg PO QAM 08/25/20 07/30/21 History nitroglycerin 0.4 % (w/w) rectal 1 inch [place] BID PRN 08/25/20 07/30/21 History ointment hydrocortisone 2.5 % topical cream 1 applic AL DAILY PRN #30 g 07/30/21 07/30/21 Rx with perineal applicator metoprolol tartrate 50 mg tablet 50 mg PO BID #60 tab 07/30/21 07/30/21 Rx Patient History Medical History (Updated 07/31/21 @ 13:41 by Sana Newberry MD) Age related osteoporosis Anemia Angiomyolipoma of left kidney Ascending aortic aneurysm 6.2cm with Ao arch thrombus 05/06/20 on chronic Eliquis Atrial tachycardia Cardiomyopathy Carotid bruit follows at [facility] COPD, mild COVID-19 virus detected 08/26/20 Degenerative disc disease Elevated IOP Hx of aortic aneurysm reason for eliquis--following with [facility] Lung nodule, solitary Obesity (BMI 30-39.9) On anticoagulant therapy eliquis bid Pulmonary emphysema mild, no inhalers/nebulizer or oxygen Pyelonephritis Smoker unmotivated to quit Spinal stenosis, lumbar region with neurogenic claudication Worst at L4-5 Tobacco abuse counseling Surgical History History of bilateral tubal ligation (1972) History of cataract surgery bilt History of colonoscopy with polypectomy History of incision and drainage (2016) sebaceous cyst mid back History of removal of cyst off kidney--benign History of tooth extraction all teeth History of wisdom tooth extraction Family History Brother Cancer Father Alcoholism Myocardial infarction Sister Crohn's disease DVT of leg (deep venous thrombosis) Mother Hyperlipidemia Daughter Muscular dystrophy Other No family history of adverse response to anesthesia Denies family history of Ovarian cancer Prostate cancer Breast cancer Colorectal cancer Social History Smoking Status: Former smoker Cigarettes Per Day: 10 a day; Second Hand Exposure: Yes; Hx Alcohol Use: No Hx Substance Use: No Preferred Language: Georgian Communication Ability: Effective Visual Impairment: No Limitations Hearing Ability: Normal 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 Beliefs That Will Affect Care: None Current Living Situation: Alone current occupational status: retired Feels Safe at Home: Yes Childhood Exposure to Second-Hand Smoke: Yes Dental Care, Regularly: No Physical Activity Frequency: Daily Physical Activity Frequency Comment: has dentures Seatbelt Use: always Sunscreen Use: No Assistive Devices: None Review of Systems Constitutional: no fever, no chills, no fatigue and no weight loss Eyes: no eye pain and no worsening vision Ear, Nose, Mouth, Throat: no tinnitus, no dizziness, no nasal discharge and no epistaxis Respiratory: no cough, no dyspnea, no dyspnea on exertion and no wheezing Cardiovascular: no chest pain, no orthopnea, no palpitations and no edema Gastrointestinal: as per Subjective / HPI Genitourinary: no dysuria, no urinary frequency, no urinary incontinence and no hematuria Musculoskeletal: no stiffness and no myalgia Neurologic: no localized weakness, no paralysis, no tremor(s) and no headache (s) Endocrine: no polydipsia and no polyuria Hematologic / Lymphatic: no easy bleeding and no night sweats Physical Exam Constitutional: + well hydrated, cooperative and comfortable Eyes: PERRL, conjunctivae normal, anicteric sclerae ENMT: external ear and nose normal, oropharynx normal Neck: normal visual inspection and trachea midline Respiratory: normal respiratory effort, lungs clear to auscultation Auscultation: no wheezes Cardiovascular: RRR, no murmur, no edema Gastrointestinal (Abdomen): normal bowel sounds, soft, nontender, no hepatosplenomegaly Musculoskeletal: no cyanosis or clubbing, extremities motor strength 5/5 Skin: no rashes, warm and dry Neurologic: awake; no focal motor deficits Motor/Sensory: no tremor Results & Data ([facility]) Vital Signs (Past 12 Hours) Vital Signs Temp Pulse Pulse Resp BP Pulse Ox 07/31/21 11:27 36.7 C 89 18 123/67 93 07/31/21 09:18 84 07/31/21 06:26 36.5 C 82 20 144/70 H 97 07/31/21 03:53 36.5 C 111 H 20 136/85 95 07/31/21 03:29 101 H Laboratory Results Laboratory Results - last 24 hr 07/30/21 07/30/21 07/30/21 18:11 18:11 20:57 WBC 12.04 H RBC 3.87 L Hgb 9.2 L Hct 31.0 L MCV 80.1 MCH 23.8 L MCHC 29.7 L RDW Std Deviation 51.2 H RDW Coeff of Jose Ramon 17.4 H Plt Count 620 H MPV 9.8 Immature Gran % (Auto) 0.3 Neut % (Auto) 74.1 Lymph % (Auto) 15.9 [place] % (Auto) 7.2 Eos % (Auto) 2.2 Baso % (Auto) 0.3 Neut # (Auto) 8.91 H Lymph # (Auto) 1.92 [place] # (Auto) 0.87 H Eos # (Auto) 0.26 Baso # (Auto) 0.04 Immature Gran # (Auto) 0.04 H Spherocytes Ovalocytes Sodium 139 Potassium 4.5 Chloride 108 H Carbon Dioxide 24 Anion Gap 7 BUN 25 H Creatinine 1.23 H Est Cr Clr Drug Dosing 38.4 Est GFR ( Amer) 48.7 Est GFR (Non-Af Amer) 42.0 BUN/Creatinine Ratio 20.3 H Glucose 102 H Lactate Calcium 9.5 Total Bilirubin 0.2 Direct Bilirubin AST 9 L ALT 8 Alkaline Phosphatase 89 Total Protein 7.2 Albumin 3.4 Globulin 3.8 Albumin/Globulin Ratio 0.9 Lipase 15 Urine Color Urine Appearance Urine pH Ur Specific [place] Urine Protein Urine Glucose (UA) Urine Ketones Urine Blood Urine Nitrite Urine Bilirubin Urine Urobilinogen Ur Leukocyte Esterase Urine WBC (Auto) Urine RBC (Auto) U Hyaline Cast (Auto) U Epithel Cells (Auto) Urine Bacteria (Auto) Uric Acid Crystals SARS-CoV-2, RNA, NAAT NEGATIVE 07/31/21 07/31/21 07/31/21 01:15 01:15 07:31 WBC 10.81 H 8.58 RBC 3.63 L 3.59 L Hgb 8.7 L 8.4 L Hct 29.2 L 28.9 L MCV 80.4 80.5 MCH 24.0 L 23.4 L MCHC 29.8 L 29.1 L RDW Std Deviation 51.4 H 51.3 H RDW Coeff of Jose Ramon 17.3 H 17.4 H Plt Count 511 H 491 H MPV 9.2 9.6 Immature Gran % (Auto) 0.5 0.3 Neut % (Auto) 72.4 74.2 Lymph % (Auto) 13.6 12.4 [place] % (Auto) 10.3 9.9 Eos % (Auto) 2.6 2.7 Baso % (Auto) 0.6 0.5 Neut # (Auto) 7.83 H 6.37 Lymph # (Auto) 1.47 1.06 L [place] # (Auto) 1.11 H 0.85 H Eos # (Auto) 0.28 0.23 Baso # (Auto) 0.07 0.04 Immature Gran # (Auto) 0.05 H 0.03 H Spherocytes 1+ Ovalocytes 1+ Sodium Potassium Chloride Carbon Dioxide Anion Gap BUN Creatinine Est Cr Clr Drug Dosing Est GFR ( Amer) Est GFR (Non-Af Amer) BUN/Creatinine Ratio Glucose Lactate 0.5 Calcium Total Bilirubin Direct Bilirubin AST ALT Alkaline Phosphatase Total Protein Albumin Globulin Albumin/Globulin Ratio Lipase Urine Color Urine Appearance Urine pH Ur Specific [place] Urine Protein Urine Glucose (UA) Urine Ketones Urine Blood Urine Nitrite Urine Bilirubin Urine Urobilinogen Ur Leukocyte Esterase Urine WBC (Auto) Urine RBC (Auto) U Hyaline Cast (Auto) U Epithel Cells (Auto) Urine Bacteria (Auto) Uric Acid Crystals SARS-CoV-2, RNA, NAAT 07/31/21 07/31/21 07/31/21 07:31 10:52 11:06 WBC 10.14 RBC 3.64 L Hgb 8.6 L Hct 29.0 L MCV 79.7 L MCH 23.6 L MCHC 29.7 L RDW Std Deviation 50.8 H RDW Coeff of Jose Ramon 17.1 H Plt Count 483 H MPV 9.5 Immature Gran % (Auto) 0.8 Neut % (Auto) 76.4 Lymph % (Auto) 10.6 [place] % (Auto) 9.2 Eos % (Auto) 2.6 Baso % (Auto) 0.4 Neut # (Auto) 7.76 H Lymph # (Auto) 1.07 L [place] # (Auto) 0.93 H Eos # (Auto) 0.26 Baso # (Auto) 0.04 Immature Gran # (Auto) 0.08 H Spherocytes Ovalocytes Sodium 139 Potassium 4.3 Chloride 109 H Carbon Dioxide 25 Anion Gap 5 BUN 21 Creatinine 1.16 Est Cr Clr Drug Dosing 40.5 Est GFR ( Amer) 52.2 Est GFR (Non-Af Amer) 45.1 BUN/Creatinine Ratio 18.1 Glucose 90 Lactate Calcium 9.1 Total Bilirubin 0.2 Direct Bilirubin 0.0 AST 6 L ALT 5 L Alkaline Phosphatase 74 Total Protein 6.2 Albumin 2.9 L Globulin Albumin/Globulin Ratio Lipase Urine Color Yellow Urine Appearance Clear Urine pH 5.0 Ur Specific [place] 1.026 Urine Protein Trace H Urine Glucose (UA) Negative Urine Ketones Negative Urine Blood Negative Urine Nitrite Negative Urine Bilirubin Negative Urine Urobilinogen Negative Ur Leukocyte Esterase Negative Urine WBC (Auto) 5-10 H Urine RBC (Auto) 0-4 U Hyaline Cast (Auto) 1-5 U Epithel Cells (Auto) 20-30 H Urine Bacteria (Auto) 1+ H Uric Acid Crystals Present A SARS-CoV-2, RNA, NAAT (1) Anemia Anemia type: iron deficiency Iron deficiency anemia type: chronic blood loss Qualified Code(s): D50.0 - Iron deficiency anemia secondary to blood loss (chronic)
[2021-07-31] MEDS: POLYETHYLENE (MIRALAX) 17 GM PACK PO SCH ×2 (17:20→20:26)
--- NOTE | 2021-07-31 19:17 | Ultrasound Report ---
ABDOMINAL ULTRASOUND, RIGHT UPPER QUADRANT HISTORY: Right upper quadrant abdominal pain.. COMPARISON: Abdomen and pelvis CT 07/30/2021. FINDINGS: Pancreas: Obscured by overlying bowel gas. Liver: Unremarkable. Gallbladder: No gallbladder wall thickening. Negative sonographic Solano sign. There is a 6 mm stone versus polyp within the gallbladder. CBD: 3 mm. Right kidney: There are 2 cysts within the right kidney with the largest measuring 4 cm. There is mil d hydronephrosis. IMPRESSION: 1. Mild right hydronephrosis. 2. A 6 mm stone versus polyp within the gallbladder. No gallbladder wall thickening. ACT 112: Negative or not required by law. Electronically signed by: Abner Avina M.D. 07/31/2021 7:16 PM
[2021-08-01 07:11] LABS: Hemoglobin 8.7 g/dL (12.0-16.0); Mean Corpuscular Volume 79.9 fL (80-100); Mean Platelet Volume 9.9 fL (7.4-10.4); Platelet Count 483 K/uL (130-400); RDW Coefficient of Variation 17.2 % (11.5-14.5); RDW Standard Deviation 50.5 fL (36.4-46.3); Red Blood Count 3.63 M/uL (4.2-5.4); White Blood Count 9.66 K/uL (4.8-10.8)
[2021-08-01] MEDS: ONDANSETRON INJ 2 MG/ML 2 ML VIAL IV PRN (07:13)
[2021-08-01] MEDS: MoRPHine SULFATE 2 MG/ML CARP IV PRN ×2 (07:13→17:43)
[2021-08-01 07:37] LABS: Albumin Globulin Ratio 0.9 (0.9-2); Albumin Level 2.9 gm/dl (3.4-5.0); BUN Creatinine Ratio 15.3 (10-20); Bilirubin,Total 0.2 mg/dl (0.2-1.0); Calcium 9.1 mg/dl (8.5-10.1); Creatinine Clr Calc Pharmacy 42.5 ml/min; Est GFR (African American) 55.1 ml/min; Est GFR (Non-African American) 47.5 ml/min; Globulin 3.3 gm/dl (2.5-4.0); Potassium 4.4 mmol/L (3.5-5.1); Total Protein 6.2 gm/dl (6.0-8.3)
[2021-08-01] MEDS: ATORVASTATIN 40 MG TAB PO SCH (08:37)
[2021-08-01] MEDS: PANTOprazole 40 MG in SYRINGE 0 ML IV SCH ×2 (08:37→20:53)
[2021-08-01] MEDS: POLYETHYLENE (MIRALAX) 17 GM PACK PO SCH ×3 (08:37→20:53)
--- NOTE | 2021-08-01 11:54 | Gastroenterology Progress Note ---
Date of Service August 01, 2021 Assessment & Plan Admission and Anticipated Discharge Date Admission Date: July 30, 2021 Subjective Patient was seen and examined today, feels fine, still has mild epigastric pain. Tolerated clear liquids. Sono with no gallstones. H/H stable Plan: EGD tomorrow NPO after midnight. Results & Data ([facility]) Vital Signs (Past 12 Hours) Vital Signs Temp Pulse Pulse Resp BP Pulse Ox 08/01/21 11:36 36.6 C 108 H 18 146/80 H 92 08/01/21 09:33 100 H 08/01/21 07:52 36.9 C 86 18 134/73 93 08/01/21 03:58 36.6 C 95 H 16 146/77 H 91 08/01/21 00:00 101 H
--- NOTE | 2021-08-01 13:25 | Hospitalist Progress Note ---
Date of Service August 01, 2021 Assessment & Plan (1) Diffuse abdominal pain: Plan: Constipation vs. GI bleed EGD tomorrow MiraLAX TID added yesterday, add Senna today as still without BM (2) GI bleeding: Plan: Stable Hgb EGD tomorrow (3) Ascending aortic aneurysm: Plan: s/p TEVAR performed on 07/05/21 - Stable -Monitor (4) Anemia: Plan: Monitor Admission and Anticipated Discharge Date Admission Date: July 30, 2021 Subjective Continued epigastric pain with mild nausea but no vomiting. Not yet had a BM despite MiraLAX given yesterday. No worsening of her symptoms but no improvement. Planning on EGD tomorrow. Review of Systems Review of Systems: All systems reviewed & are unremarkable except as noted in Subjective Physical Exam Constitutional: WD/WN, vitals as above Respiratory: normal respiratory effort, lungs clear to auscultation Cardiovascular: Rate/Rhythm: regular rate and regular rhythm Heart Sounds: + murmur (systolic) Gastrointestinal (Abdomen): Inspection/Auscultation: + hypoactive bowel sounds Percussion/Palpation: + abdomen tender (epigastric) and abdomen soft; no guarding and abdomen not rigid Musculoskeletal: no cyanosis or clubbing, extremities motor strength 5/5 Skin: no rashes, warm and dry Neurologic: moves all extremities and awake; not confused Psychiatric: A+Ox3, euthymic affect Genitourinary: no CVA tenderness Results & Data Results & Data ([facility]) Vital Signs (Past 12 Hours) Vital Signs Temp Pulse Pulse Resp BP Pulse Ox 08/01/21 11:36 36.6 C 108 H 18 146/80 H 92 08/01/21 09:33 100 H 08/01/21 07:52 36.9 C 86 18 134/73 93 08/01/21 03:58 36.6 C 95 H 16 146/77 H 91 PG Care Time/CCT Total # of Minutes Spent Total Time Spent with Patient: Total time spent is greater than 50% in coordination of care (as documented) at patient's floor/unit and/or counseling patient: Coding Level of Care Code 60006 Subseq Hosp Care Lvl 2 Diagnoses Diffuse abdominal pain R10.84 GI bleeding K62.5 GI bleed type/associated pathology: anorectal hemorrhage Ascending aortic aneurysm I71.2 Anemia D50.0 Anemia type: iron deficiency Iron deficiency anemia type: chronic blood loss (1) GI bleeding GI bleed type/associated pathology: anorectal hemorrhage Qualified Code(s): K62.5 - Hemorrhage of anus and rectum (2) Anemia Anemia type: iron deficiency Iron deficiency anemia type: chronic blood loss Qualified Code(s): D50.0 - Iron deficiency anemia secondary to blood loss (chronic)
[2021-08-01] MEDS: DOCUSATE SODIUM/SENNA 50/8.6MG TAB PO SCH ×2 (13:38→20:53)
[2021-08-01] MEDS ORDERED: traMADol HCL 50 MG TABLET PO PRN (14:51)
[2021-08-01] MEDS ORDERED: traMADol HCL 50 MG TABLET PO STA (14:52)
--- NOTE | 2021-08-01 17:56 | Electrocardiogram Report ---
Test Reason : Blood Pressure : / mmHG Vent. Rate : 102 BPM Atrial Rate : 102 BPM P-R Int : 174 ms QRS Dur : 072 ms QT Int : 342 ms P-R-T Axes : 051 014 052 degrees QTc Int : 445 ms Sinus tachycardia Possible Left atrial enlargement Borderline ECG When compared with ECG of 10-AUG-2019 07:27, Premature ventricular complexes are no longer Present Nonspecific T wave abnormality no longer evident in Lateral leads Confirmed by Shai Lomas ([id number]) on 08/01/2021 5:56:25 PM Referred By: REFERRED SELF Confirmed By:Shai Lomas
[2021-08-01] MEDS: METOPROLOL TARTRATE 50 MG TAB PO SCH (20:53)
[2021-08-02 07:04] LABS: Hematocrit (blood only) 30.1 % (37-47); Hemoglobin 8.9 g/dL (12.0-16.0); Mean Corpuscular Hemoglobin 23.7 pg (25-34); Mean Corpuscular Hgb Conc 29.6 g/dL (32-36); Mean Corpuscular Volume 80.1 fL (80-100); Mean Platelet Volume 9.8 fL (7.4-10.4); Platelet Count 438 K/uL (130-400); RDW Coefficient of Variation 17.1 % (11.5-14.5); RDW Standard Deviation 50.2 fL (36.4-46.3); Red Blood Count 3.76 M/uL (4.2-5.4); White Blood Count 8.72 K/uL (4.8-10.8)
[2021-08-02] MEDS ORDERED: LACTATED RINGER'S 1,000 ML IV SCH (07:30)
--- NOTE | 2021-08-02 08:29 | History & Physical Bridge Note ---
Date of Service August 02, 2021 History & Physical Bridge Note I have examined the patient, reviewed the History & Physical and in the interval since the performance of the History & Physical I have noted the following changes of clinical significance: no changes noted
--- NOTE | 2021-08-02 08:43 | Anesthesiology Consultation ---
Date of Service August 02, 2021 Assessment & Plan Chart Review Chart Review: Acceptable Risk for Surgery and Patient NOT seen in Pre Admission Testing Consults Requested none ASA ASA4 Proposed Anesthesia Anesthesia Type: MAC Risk / Benefits Reviewed With: PT / POA / Parent / Guardian, Accepts Plan and Informed Consent Obtained History Surgery Operation Date: 08/02/21 17:30 Proposed Procedures p Esophagogastroduodenoscopy Dr Santino De, DO Height/Weight Height: 5 ft 3 in Weight: 82.4 kg Allergies Allergy/AdvReac Type Severity Reaction Status Date / Time Fish Containing Products Allergy Severe SWELLING Verified 07/30/21 20:49 THROAT Medications Home Medications Medication Instructions Recorded Confirmed Last Taken ferrous sulfate 325 mg (65 mg 325 mg PO QAM 08/17/20 07/30/21 07/30/21 iron) tablet apixaban 5 mg tablet (Eliquis) 5 mg PO BID tab 08/20/20 07/30/21 07/28/21 aspirin 81 mg tablet,delayed 81 mg PO QAM 08/20/20 07/30/21 07/30/21 release (Adult Aspirin Regimen) atorvastatin 40 mg tablet 40 mg PO QAM 08/20/20 07/30/21 07/30/21 lisinopril 10 mg tablet 10 mg PO QAM 08/25/20 07/30/21 07/30/21 nitroglycerin 0.4 % (w/w) rectal 1 inch NV BID PRN 08/25/20 07/30/21 Unknown ointment hydrocortisone 2.5 % topical cream 1 applic NV DAILY PRN #30 g 07/30/21 07/30/21 Unknown with perineal applicator metoprolol tartrate 50 mg tablet 50 mg PO BID #60 tab 07/30/21 07/30/21 07/30/21 Active Medications Generic Name Dose Route Start Last Admin Trade Name Freq PRN Reason Stop Dose Admin Atorvastatin Calcium 40 mg 07/31/21 09:00 08/01/21 08:37 Atorvastatin 40 Mg Tab PO 08/30/21 08:59 40 mg QAM RADHA Administration Pantoprazole Sodium 40 mg/ 10 mls @ 5 mls/min 07/31/21 00:04 08/01/21 20:53 Syringe IV 08/30/21 00:03 5 mls/min BID RADHA Administration Metoprolol Tartrate 50 mg 08/01/21 21:00 08/01/21 20:53 Metoprolol Tartrate 50 Mg Tab PO 08/31/21 20:59 50 mg BID RADHA Administration Morphine Sulfate 2 mg 07/31/21 00:04 08/01/21 17:43 Morphine Sulfate 2 Mg/Ml Carp IV 08/14/21 00:03 2 mg Q4H PRN Administration Pain Ondansetron HCl 4 mg 07/31/21 00:04 08/01/21 07:13 Ondansetron Inj 2 Mg/Ml 2 Ml Vial IV 08/30/21 00:03 4 mg Q6H PRN Administration Nausea Polyethylene Glycol 17 gm 07/31/21 14:45 08/01/21 20:53 Polyethylene (Miralax) 17 Gm Pack PO 08/30/21 14:44 17 gm TID RADHA Administration Senna/Docusate Sodium 1 tab 08/01/21 13:10 08/01/21 20:53 Docusate Sodium/Senna 50/8.6mg Tab PO 08/31/21 13:09 1 tab BID RADHA Administration NPO Date Last Intake of Fluids: 08/01/21 Time Last Intake of Fluids: 16:00 Date Last Intake of Solids: 08/01/21 Time Last Intake of Solids: 16:00 Past Medical History Medical History (Updated 07/31/21 @ 13:41 by Sana Newberry MD) Age related osteoporosis Anemia Angiomyolipoma of left kidney Ascending aortic aneurysm 6.2cm with Ao arch thrombus 05/06/20 on chronic Eliquis Atrial tachycardia Cardiomyopathy Carotid bruit follows at [facility] Cardiology COPD, mild COVID-19 virus detected 08/26/20 Degenerative disc disease Elevated IOP Hx of aortic aneurysm reason for eliquis--following with [facility] Lung nodule, solitary Obesity (BMI 30-39.9) On anticoagulant therapy eliquis bid Pulmonary emphysema mild, no inhalers/nebulizer or oxygen Pyelonephritis Smoker unmotivated to quit Spinal stenosis, lumbar region with neurogenic claudication Worst at L4-5 Tobacco abuse counseling Exercise / Class Metabolic Activity II 4-5 Yardwork/Stairs/Walk up hill Past Family History Family History Brother Cancer Father Alcoholism Myocardial infarction Sister Crohn's disease DVT of leg (deep venous thrombosis) Mother Hyperlipidemia Daughter Muscular dystrophy Other No family history of adverse response to anesthesia Denies family history of Ovarian cancer Prostate cancer Breast cancer Colorectal cancer Past Surgical History Surgical History History of bilateral tubal ligation (1972) History of cataract surgery bilt History of colonoscopy with polypectomy History of incision and drainage (2016) sebaceous cyst mid back History of removal of cyst off kidney--benign History of tooth extraction all teeth History of wisdom tooth extraction Past Anesthesia History No Hx of Anesthesia Complications and No Family Hx of Anesthesia Complications History of PONV No Hx of PONV and No Hx of Motion Sickness Social History Smoking Status: Former smoker tobacco type: cigarettes Smoking cigarettes per day: 10 a day Do You Dip or Chew Tobacco: No Smoking End Date: 07/05/2021 Hx Alcohol Use: No Hx Substance Use: No substance use type: does not use Physical Exam Vital Signs Last Vital Signs Temp 36.9 C 08/02/21 08:29 Pulse 92 H 08/02/21 08:29 Resp 20 08/02/21 08:29 BP 191/113 H 08/02/21 08:36 Pulse Ox 95 08/02/21 08:36 Constitutional + obese ENMT Mouth: no dentition abnormality Thyromental Distance: > or= 3.5 Finger Breadths Mallampati Class: II Neck normal visual inspection Respiratory normal respiratory effort Auscultation: + diminished lung sounds Cardiovascular Rate/Rhythm: regular rate and regular rhythm Psychiatric Orientation: alert Testing Laboratory Results 08/02/21 06:40 08/01/21 06:24 Urine Color Yellow 07/31/21 11:06 Urine Appearance Clear (Clear) 07/31/21 11:06 Urine pH 5.0 (4.5-7.5) 07/31/21 11:06 Ur Specific [place] 1.026 (1.000-1.030) 07/31/21 11:06 Urine Protein Trace (Negative) H 07/31/21 11:06 Urine Glucose (UA) Negative (Negative) 07/31/21 11:06 Urine Ketones Negative (Negative) 07/31/21 11:06 Urine Nitrite Negative (Negative) 07/31/21 11:06 Ur Leukocyte Esterase Negative (Negative) 07/31/21 11:06 Urine WBC (Auto) 5-10 /hpf (0-5) H 07/31/21 11:06 Urine RBC (Auto) 0-4 /hpf (0-4) 07/31/21 11:06 U Hyaline Cast (Auto) 1-5 /lpf (0-5) 07/31/21 11:06 U Epithel Cells (Auto) 20-30 /lpf (0-5) H 07/31/21 11:06 Urine Bacteria (Auto) 1+ (Negative) H 07/31/21 11:06 07/31/21 11:06 Urine Culture - Final Urine,Clean Catch More than three types of organisms present, all moderate counts mixed probable skin manda. No further identifications or sensitivities to follow.
[2021-08-02] MEDS ORDERED: LIDOCAINE 2% 2 ML VIAL/AMP(20MG/ML) INFIL ONE (08:58)
[2021-08-02] MEDS ORDERED: PROPOFOL IV EMULSION 10 MG/ML 20 ML VIAL IV ONE (08:58)
[2021-08-02] MEDS ORDERED: GLYCOPYRROLATE 0.2 MG/ML VIAL ONE (09:15)
[2021-08-02] MEDS ORDERED: PHENYLEPHRINE 100MCG/ML 5ML SYR ONE (09:15)
--- NOTE | 2021-08-02 09:22 | GI REPORT ---
Patient Name: Hafsa Tate Procedure Date: 08/02/2021 8:59 AM Date of : 1945 Admit Type: Inpatient Age: 76 Gender: Female Attending MD: Ruthy De DO Procedure: Upper GI endoscopy Providers: Ruthy De DO Referring MD: Referred Self Indications: Epigastric abdominal pain Medicines: Monitored Anesthesia Care Complications: No immediate complications. Estimated blood loss: Minimal. Estimated Blood Loss: Estimated blood loss was minimal. Procedure: Pre-Anesthesia Assessment: - Prior to the procedure, a History and Physical was performed, and patient medications, allergies and sensitivities were reviewed. The patient's tolerance of previous anesthesia was reviewed. - The risks and benefits of the procedure and the sedation options and risks were discussed with the patient. All questions were answered and informed consent was obtained. - Patient identification and proposed procedure were verified prior to the procedure by the physician, the nurse and the certified social workers in health care. The procedure was verified in the procedure room. - Pre-procedure physical examination revealed no contraindications to sedation. - ASA Grade Assessment: IV - A patient with severe systemic disease that is a constant threat to life. - After reviewing the risks and benefits, the patient was deemed in satisfactory condition to undergo the procedure. - The anesthesia plan was to use monitored anesthesia care (MAC). - Immediately prior to administration of medications, the patient was re-assessed for adequacy to receive sedatives. - The heart rate, respiratory rate, oxygen saturations, blood pressure, adequacy of pulmonary ventilation, and response to care were monitored throughout the procedure. - The physical status of the patient was re-assessed after the procedure. After obtaining informed consent, the endoscope was passed under direct vision. Throughout the procedure, the patient's blood pressure, pulse, and oxygen saturations were monitored continuously. The Endoscope was introduced through the mouth, and advanced to the fourth part of duodenum. The upper GI endoscopy was accomplished without difficulty. The patient tolerated the procedure well. Findings: The examined esophagus was normal. The Z-line was regular and was found 37 cm from the incisors. Diffuse moderate inflammation characterized by areas of pale appearing mucosa was found in the entire examined stomach. Biopsies were taken with a cold forceps for histology. The pathology specimen was placed into Bottle A. Estimated blood loss was minimal. The examined duodenum was normal. Impression: - Normal esophagus. - Z-line regular, 37 cm from the incisors. - Suspect ischemic gastritis. Biopsied. - Normal examined duodenum. Recommendation: - Return patient to [facility] for [facility] care. - Transfer patient to a tertiary center given the question of ischemic injury to the gastrointestinal tract (likely from recent aoritic anneurysm repair). - Consider a repeat lactate level Ruthy De D.O. Ruthy De, DO 08/02/2021 9:21:57 AM This report has been signed electronically. Note Initiated On: 08/02/2021 8:59 AM Number of Addenda: 0 I attest to the content of the Intraoperative Record and orders documented therein, exceptions below {[id number]}
--- NOTE | 2021-08-02 09:25 | Anesthesiology Progress Note ---
Date of Service August 02, 2021 Anesthesia Post Procedure Vital Signs Vital Signs: Temp Pulse Pulse Pulse Resp BP Pulse Ox 08/02/21 09:20 105 H 18 118/77 95 08/02/21 08:36 191/113 H 95 08/02/21 08:29 36.9 C 92 H 20 172/106 H 91 08/02/21 07:22 37 C 77 16 138/71 91 08/01/21 23:47 36.9 C 71 18 135/78 93 08/01/21 16:40 36.7 C 108 H 18 130/78 92 08/01/21 15:09 37.0 C 137 H 20 122/83 93 08/01/21 11:36 36.6 C 108 H 18 146/80 H 92 08/01/21 09:33 100 H Pain Intensity Bilateral Abdomen: Pain Intensity: 9 Transfer of Care Handoff Completed per policy Notes Mental Status: alert / awake / arousable Patient Amnestic to Procedure: Yes Nausea / Vomiting: adequately controlled Pain: adequately controlled Airway Patency, RR, SpO2: stable & adequate BP & HR: stable & adequate Hydration State: stable & adequate Anesthetic Complications: no major complications apparent
[2021-08-02] MEDS: ONDANSETRON INJ 2 MG/ML 2 ML VIAL IV PRN (11:14)
[2021-08-02] MEDS: MoRPHine SULFATE 2 MG/ML CARP IV PRN (11:14)
[2021-08-02] MEDS: METOPROLOL TARTRATE 50 MG TAB PO SCH ×3 (11:18→21:20)
[2021-08-02] MEDS: DOCUSATE SODIUM/SENNA 50/8.6MG TAB PO SCH ×2 (11:18→21:20)
[2021-08-02] MEDS: PANTOprazole 40 MG in SYRINGE 0 ML IV SCH ×2 (11:18→21:20)
[2021-08-02] MEDS: ATORVASTATIN 40 MG TAB PO SCH (11:18)
[2021-08-02] MEDS: POLYETHYLENE (MIRALAX) 17 GM PACK PO SCH ×3 (11:23→21:21)
[2021-08-02] MEDS ORDERED: Heparin IV Adult Wt-Based Standard *NO* Bolus Protocol IV SCH (12:56)
--- NOTE | 2021-08-02 12:57 | Hospitalist Progress Note ---
Date of Service August 02, 2021 Assessment & Plan (1) Ischemic bowel disease: Plan: Ischemic gastritis on EGD Discussed with radiologist and confirmed celiac trunk (and SMA) is widely patent on CT on admission. Lactate normal on admission and repeat now also normal Patient currently pain free after EGD Suspect infarct happened with small vessels at the time of TEVAR with known thrombus seen on aortic arch pre-op - despite Discussed with vascular at [facility] (Dr Patrick Madsen) - if celiac widely patent they would not perform any additional tests such as invasive angiogram. Given cannot rule out ongoing thrombus will place back on anticoagulation with IV heparin as below and monitor hemoglobin Will transfer patient to med/tele since we are starting IV heparin in a patient with fecal occult blood positive. If pain free overnight can likely discharge with close vascular follow up. If still having pain will likely need to be transferred to [facility] under the medicine service with vascular consult. (2) Diffuse abdominal pain: Plan: Constipation vs. GI bleed EGD tomorrow MiraLAX TID added yesterday, add Senna today as still without BM (3) GI bleeding: Plan: Stable Hgb No current bleeding ulcer therefore will restart on anticogulation at this time however will switch to heparin IV overnight to make sure hemoglobin remains stable. (4) Ascending aortic aneurysm: Plan: s/p TEVAR performed on 07/05/21 - Stable -Monitor (5) Anemia: Plan: Monitor Admission and Anticipated Discharge Date Admission Date: August 02, 2021 Subjective Patient seen after EGD. Not yet had a BM but currently abdominal pain free. No nausea or vomiting but also she hasn't had anything to eat today Discussed case with Dr De - recommended transfer to vascular surgeon who preformed TEVAR. Discussed case with vascular surgery in [facility] - no surgical intervention required at this time. Review of Systems Review of Systems: All systems reviewed & are unremarkable except as noted in Subjective Physical Exam Constitutional: WD/WN, vitals as above Respiratory: normal respiratory effort, lungs clear to auscultation Cardiovascular: Rate/Rhythm: regular rate and regular rhythm Heart Sounds: + murmur (systolic) Gastrointestinal (Abdomen): Inspection/Auscultation: + hypoactive bowel sounds Percussion/Palpation: abdomen soft; abdomen nontender, no guarding and abdomen not rigid Musculoskeletal: no cyanosis or clubbing, extremities motor strength 5/5 Skin: no rashes, warm and dry Neurologic: moves all extremities and awake; not confused Psychiatric: A+Ox3, euthymic affect Genitourinary: no CVA tenderness Results & Data Results & Data ([facility]) Vital Signs (Past 12 Hours) Vital Signs Temp Pulse Resp BP Pulse Ox 08/02/21 10:53 36.8 C 89 18 135/76 93 08/02/21 10:18 36.5 C 99 H 18 143/89 H 94 08/02/21 09:50 106 H 18 149/90 H 93 08/02/21 09:35 109 H 18 135/91 93 08/02/21 09:20 105 H 18 118/77 95 08/02/21 08:36 191/113 H 95 08/02/21 08:29 36.9 C 92 H 20 172/106 H 91 08/02/21 07:22 37 C 77 16 138/71 91 PG Care Time/CCT Total # of Minutes Spent Total Time Spent with Patient: Total time spent is greater than 50% in coordination of care (as documented) at patient's floor/unit and/or counseling patient: Coding Level of Care Code 68315 Subseq Hosp Care Lvl 3 Diagnoses Diffuse abdominal pain R10.84 GI bleeding K62.5 GI bleed type/associated pathology: anorectal hemorrhage Ascending aortic aneurysm I71.2 Anemia D50.0 Anemia type: iron deficiency Iron deficiency anemia type: chronic blood loss Ischemic bowel disease K55.9 (1) GI bleeding GI bleed type/associated pathology: anorectal hemorrhage Qualified Code(s): K62.5 - Hemorrhage of anus and rectum (2) Anemia Anemia type: iron deficiency Iron deficiency anemia type: chronic blood loss Qualified Code(s): D50.0 - Iron deficiency anemia secondary to blood loss (chronic)
[2021-08-02 13:33] LABS: INR 1.1 (0.9-1.1); Partial Thromboplastin Time 26.1 Seconds (21.0-31.0); Prothrombin Time 11.1 Seconds (9.0-12.0)
[2021-08-02] MEDS: HEPARIN SODIUM/DEXTROSE 25,000 UNITS/500 ML BAG IV SCH (14:59)
[2021-08-02 22:53] LABS: Partial Thromboplastin Ratio 1.4; Partial Thromboplastin Time 36.7 Seconds (21.0-31.0)
[2021-08-02] MEDS ORDERED: HEPARIN SOD (PORCINE) 1000 UNIT/ML IV ONE (23:15)
[2021-08-03 06:17] LABS: Hematocrit (blood only) 29.2 % (37-47); Hemoglobin 8.7 g/dL (12.0-16.0); Mean Corpuscular Hemoglobin 23.8 pg (25-34); Mean Corpuscular Hgb Conc 29.8 g/dL (32-36); Mean Platelet Volume 10.2 fL (7.4-10.4); Platelet Count 437 K/uL (130-400); RDW Standard Deviation 49.8 fL (36.4-46.3); Red Blood Count 3.65 M/uL (4.2-5.4); White Blood Count 8.06 K/uL (4.8-10.8)
[2021-08-03 06:36] LABS: Partial Thromboplastin Ratio 1.7; Partial Thromboplastin Time 43.8 Seconds (21.0-31.0)
[2021-08-03 06:41] LABS: BUN Creatinine Ratio 8.6 (10-20); Calcium 9.3 mg/dl (8.5-10.1); Creatinine Clr Calc Pharmacy 33.6 ml/min; Est GFR (African American) 41.6 ml/min; Est GFR (Non-African American) 35.9 ml/min
[2021-08-03] MEDS: PANTOprazole 40 MG in SYRINGE 0 ML IV SCH ×2 (07:53→21:03)
[2021-08-03] MEDS: POLYETHYLENE (MIRALAX) 17 GM PACK PO SCH ×3 (08:29→21:01)
[2021-08-03] MEDS: DOCUSATE SODIUM/SENNA 50/8.6MG TAB PO SCH ×2 (08:31→21:02)
[2021-08-03] MEDS: METOPROLOL TARTRATE 50 MG TAB PO SCH ×2 (08:31→21:03)
[2021-08-03] MEDS: ATORVASTATIN 40 MG TAB PO SCH (08:31)
[2021-08-03] MEDS: HEPARIN SODIUM/DEXTROSE 25,000 UNITS/500 ML BAG IV SCH ×2 (11:34→13:14)
[2021-08-03 13:06] LABS: Partial Thromboplastin Ratio 1.7; Partial Thromboplastin Time 43.9 Seconds (21.0-31.0)
[2021-08-03] MEDS ORDERED: LAVAGE SOLUTION 4000ML PO SCH (14:15)
--- NOTE | 2021-08-03 16:54 | Hospitalist Progress Note ---
Date of Service August 03, 2021 Assessment & Plan (1) Ischemic bowel disease: Plan: Ischemic gastritis on EGD Discussed with radiologist 08/02 and confirmed celiac trunk (and SMA) is widely patent on CT on admission. Lactate normal on admission and repeat now also normal Patient remains pain free on clear liquid diet - will need to advance prior to discharge Suspect infarct happened with small vessels at the time of TEVAR with known thrombus seen on aortic arch pre-op - despite Eliquis use Discussed with vascular at [place] (Dr Patrick Madsen) 08/04 - if celiac widely patent they would not perform any additional tests such as invasive angiogram. Hemoglobin stable on heparin IV therefore will covert back to Eliquis tonight and recheck Hgb in AM. If stable can likely be discharged tomorrow. (2) Diffuse abdominal pain: Plan: Constipation vs. ischemic gastritis Continue Miralax + Senna 2000ml Golytely prep today until large BM (3) GI bleeding: Plan: FOB positive Stable Hgb No current bleeding ulcer Anticoagulation as above (4) Ascending aortic aneurysm: Plan: s/p TEVAR performed on 07/05/21 - Stable -Monitor (5) Anemia: Plan: Monitor CBC in AM Plan: VTE Prophyalxis - Eliquis Diet - full liquid, advance as tolerated Disposition - monitor on med/tele Admission and Anticipated Discharge Date Admission Date: August 02, 2021 Subjective No current pain on current clear liquid diet. Intermittent nausea. Small hard bowel movement. Passing flatus. Review of Systems Review of Systems: All systems reviewed & are unremarkable except as noted in Subjective Physical Exam Constitutional: WD/WN, vitals as above Respiratory: normal respiratory effort, lungs clear to auscultation Cardiovascular: Rate/Rhythm: regular rate and regular rhythm Heart Sounds: + murmur (systolic) Gastrointestinal (Abdomen): Inspection/Auscultation: normal bowel sounds Percussion/Palpation: abdomen soft; abdomen nontender, no guarding and abdomen not rigid Musculoskeletal: no cyanosis or clubbing, extremities motor strength 5/5 Skin: no rashes, warm and dry Neurologic: moves all extremities and awake; not confused Psychiatric: A+Ox3, euthymic affect Results & Data Results & Data ([facility]) Vital Signs (Past 12 Hours) Vital Signs Temp Pulse Pulse Resp BP Pulse Ox 08/03/21 16:02 36.5 C 94 H 20 145/83 H 91 08/03/21 14:54 88 08/03/21 11:21 36.5 C 71 20 125/78 92 08/03/21 07:36 36.8 C 78 20 138/72 91 08/03/21 07:31 82 PG Care Time/CCT Total # of Minutes Spent Total Time Spent with Patient: Total time spent is greater than 50% in coordination of care (as documented) at patient's floor/unit and/or counseling patient: Coding Level of Care Code 69849 Subseq Hosp Care Lvl 2 Diagnoses Ischemic bowel disease K55.9 Diffuse abdominal pain R10.84 GI bleeding K62.5 GI bleed type/associated pathology: anorectal hemorrhage Ascending aortic aneurysm I71.2 Anemia D50.0 Anemia type: iron deficiency Iron deficiency anemia type: chronic blood loss (1) GI bleeding GI bleed type/associated pathology: anorectal hemorrhage Qualified Code(s): K62.5 - Hemorrhage of anus and rectum (2) Anemia Anemia type: iron deficiency Iron deficiency anemia type: chronic blood loss Qualified Code(s): D50.0 - Iron deficiency anemia secondary to blood loss (chronic)
[2021-08-03 19:39] LABS: Partial Thromboplastin Ratio 1.6; Partial Thromboplastin Time 43.3 Seconds (21.0-31.0)
[2021-08-03] MEDS: APIXABAN 5 MG TABLET PO SCH (22:34)
[2021-08-04 07:13] LABS: Basophils # (auto) 0.04 K/uL (0-0.2); Basophils % (auto) 0.5 %; Eosinophils # (auto) 0.15 K/uL (0-0.5); Eosinophils % (auto) 1.9 %; Hematocrit (blood only) 30.1 % (37-47); Hemoglobin 8.8 g/dL (12.0-16.0); Immature Granulocytes # (auto) 0.02 K/uL (0.00-0.02); Immature Granulocytes % (auto) 0.3 %; Lymphocytes # (auto) 1.02 K/uL (1.2-3.4); Lymphocytes % (auto) 12.9 %; Mean Corpuscular Hemoglobin 23.4 pg (25-34); Mean Corpuscular Hgb Conc 29.2 g/dL (32-36); Mean Corpuscular Volume 80.1 fL (80-100); Mean Platelet Volume 9.8 fL (7.4-10.4); Monocytes # (auto) 1.06 K/uL (0.11-0.59); Monocytes % (auto) 13.4 %; Platelet Count 399 K/uL (130-400); RDW Coefficient of Variation 17.1 % (11.5-14.5); RDW Standard Deviation 50.5 fL (36.4-46.3); Red Blood Count 3.76 M/uL (4.2-5.4); White Blood Count 7.89 K/uL (4.8-10.8)
[2021-08-04 07:23] LABS: Partial Thromboplastin Ratio 1.1
[2021-08-04 07:32] LABS: BUN Creatinine Ratio 8.5 (10-20); Calcium 9.1 mg/dl (8.5-10.1); Creatinine Clr Calc Pharmacy 36.2 ml/min; Est GFR (African American) 45.5 ml/min; Est GFR (Non-African American) 39.3 ml/min; Potassium 4.3 mmol/L (3.5-5.1)
[2021-08-04] MEDS ORDERED: PANTOprazole 40 MG TAB PO SCH (09:00)
[2021-08-04] MEDS: POLYETHYLENE (MIRALAX) 17 GM PACK PO SCH ×2 (09:47→13:57)
[2021-08-04] MEDS: DOCUSATE SODIUM/SENNA 50/8.6MG TAB PO SCH (09:48)
[2021-08-04] MEDS: APIXABAN 5 MG TABLET PO SCH (09:48)
[2021-08-04] MEDS: METOPROLOL TARTRATE 50 MG TAB PO SCH (09:48)
[2021-08-04] MEDS: ATORVASTATIN 40 MG TAB PO SCH (09:48)
[2021-08-04 11:18] LABS: Ferritin 429.4 ng/ml (8-388)
--- NOTE | 2021-08-04 12:55 | Discharge Summary ---
Date of Service August 04, 2021 Admission HPI Per Admitting Provider Hafsa Tate is a 76yo female with history of COPD, Anemia, atrial tachycardia presenting with abdominal pain and nausea. She was seen by her PCP today with theses complaints and subsequently sent to the ER. Her abdominal pain is located in the upper abdomen, band-like in nature and has been ongoing x 1.5 weeks. Severe 9/10, sharp and stabbing. She has also had nausea x 1.5 weeks with several episodes of non-bloody vomiting. She has had severe constipation for the last 2.5 weeks and has been taking Miralax and dulcolax. She has had several large black BMs. She has had some decreased oral intake and poor po intake. Otherwise denies chest pain, cough, SOB, dizziness, lightheadedness or syncope. Patient has history of diffuse aortic enlargement which was being followed with routine screening. Scan from 04/2020 with increase in proximal descending size. 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 She was started on Eliquis. She had a TEVAR performed on 07/05/21 which was well tolerated. No complications identified. Patient has received Covid-19 vaccination x 2 as well as Booster ER Course: Afebrile, HD stable, NAD. Principal Diagnosis Ischemic gastritis Constipation Discharge Exam Constitutional WD/WN, vitals as above Respiratory normal respiratory effort, lungs clear to auscultation Cardiovascular Rate/Rhythm: regular rate and regular rhythm Gastrointestinal (Abdomen) Inspection/Auscultation: normal bowel sounds Percussion/Palpation: abdomen soft; abdomen nontender, no guarding and abdomen not rigid Skin no rashes, warm and dry Psychiatric A+Ox3, euthymic affect Discharge Data Allergies Allergy/AdvReac Type Severity Reaction Status Date / Time Fish Containing Products Allergy Severe SWELLING Verified 07/30/21 20:49 THROAT Consultations 07/30/21 20:14 ED Decision to Admit Stat 07/30/21 21:25 Consult Gastroenterology Routine Procedures Performed Operation Date: 08/02/21 17:30 Actual Procedures p EGD Biopsy Cytology - Ruthy De DO Ordered Studies 07/30/21 18:31 CT abd pelvis IV con only Stat IMPRESSION: 1. Fat stranding seen in the right groin. Correlation with trauma or infection is recommended. 2. Redemonstration of aortic aneurysms measuring up to 40 mm. 07/31/21 14:45 US liver Routine IMPRESSION: 1. Mild right hydronephrosis. 2. A 6 mm stone versus polyp within the gallbladder. No gallbladder wall thickening. Hospital Course (1) Ischemic bowel disease: Hafsa Tate is a 76-year-old female admitted at [facility] from July 31-2021 due to abdominal pain. Subsequent upper endoscopy was concerning for ischemic gastritis. Her case was discussed with vascular surgery at [place] and since her celiac artery was widely patent on CT conservative treatment was recommended at this time. She has been pain free following the endoscopy. She was placed on heparin IV overnight to make sure no recurrent bleeding on anticoagulation and hemoglobin has been stable all admission. She should continue on aspirin, apixaban and atorvastatin as previously prescribed and follow-up with her vascular surgeon for ongoing management of anticoagulation as needed. Vascular surgery at [place] were informed of her discharge and will be arranging follow up. Unclear if her pain resolved due to liquid diet for 2-3 days, pantoprazole use or treatment for constipation (eventually requiring Golyeley prep). Given her significant constipation and difficulty resolving this recommended discontinuing her iron tablet. Transferrin sats 10%. Total body iron deficiency estimated around 900mg based on her hemoglobin and weight. She was given x1 dose 200mg Venofer during her admission. Recommend additional doses given with her primary care provider who was contacted about this. She was very constipated during her stay and MiraLax 17g TID and Sennakot BID given without success. She had a bowel movement with Golytely prep and will continue on MiraLAX up to 3 times a day and Senokot up to 2 times a day to aim for bowel movements every 2 to 3 days. Hopefully discontinuing her oral iron supplementation will help with this. She is pain free on discharge. (2) Diffuse abdominal pain: (3) GI bleeding: (4) Ascending aortic aneurysm: (5) Anemia: Total Time Total Time Spent Total Time Spent (In Minutes): 40 Discharge Plan Discharge Items Patient Disposition: Home - Self-Care Reason For Visit: ABDOMINAL PAIN Discharge Diagnosis: Ischemic gastritis Constipation Activity: Resume your previous activity Non-emergency contact: Primary Care Provider Call non-emergency contact if: you have any medication questions and your symptoms worsen Follow-up/Referrals: Gillian Amador MD [Primary Care Provider] - 08/12/21 10:20 am (Follow up iron def anemia) Marsha Craig MD [Outside Practitioners] - (Please call to arrange appointment) Diet: Regular Addtl Attending Provider Instructions: You were admitted at [facility] from July 31-2021 due to abdominal pain. Subsequent upper endoscopy was concerning for ischemic gastritis. Your case was discussed with your vascular surgery at [place] and since your celiac artery was widely patent on CT conservative treatment was recommended at this time. Please continue on aspirin, apixaban and atorvastatin as previously prescribed and follow-up with your vascular surgeon for ongoing management of anticoagulation as needed. Unclear if your pain was from this or constipation. Recommend discontinuing your iron tablet due to severe constipation. You were given an intravenous dose of Venofer 200mg IV during hospitalization. Total iron deficiency calculated at approximately 900mg therefore recommend further transfusions which can be arranged through your primary care provider. For constipation please continue MiraLAX up to 3 times a day and Senokot up to 2 times a day to aim for bowel movements every 2 to 3 days. Hopefully discontinuing your iron supplementation will help with this. Pending Studies at Discharge: No Stand-Alone Forms: [facility], Smoking Cessation Medications and DC Order Prescriptions: New polyethylene glycol 3350 [Miralax] 17 gram Powder In Packet 17 g PO TID PRN (Reason: Constipation) Qty: 90 RF: 0 sennosides-docusate sodium [Senokot-S] 8.6-50 mg Tablet 1 tab PO BID PRN (Reason: Constipation) Qty: 60 RF: 0 pantoprazole 40 mg Tablet,Delayed Release (Dr/Ec) 40 mg PO DAILY Qty: 30 RF: 0 Continued metoprolol tartrate 50 mg tablet 50 mg PO BID Qty: 60 RF: 2 hydrocortisone 2.5 % cream with perineal applicator 1 applic MI DAILY PRN (Reason: hemorrhoids) Qty: 30 RF: 0 atorvastatin 40 mg tablet 40 mg PO QAM RF: 0 Eliquis 5 mg tablet 5 mg PO BID RF: 0 aspirin [Adult Aspirin Regimen] 81 mg tablet,delayed release (DR/EC) 81 mg PO QAM RF: 0 lisinopril 10 mg tablet 10 mg PO QAM RF: 0 nitroglycerin 0.4 % (w/w) ointment 1 inch MI BID PRN (Reason: Hemorrhoids) RF: 0 Discontinued ferrous sulfate 325 mg (65 mg iron) tablet 325 mg PO QAM RF: 0 Discharge Orders: Discharge Order (Routine); Ordered 08/04/21 Ordered By: Steve Saeed Admission Data Admit Date/Time: 08/02/21 09:25 Attending Provider: Steve Saeed Admit Provider: Hillary Pablo Primary Care Provider: Gillian Amador Other Providers: Hillary Pablo ; Sana Newberry Other Interventions: Discharge Summary Assessment (RN) Last Done: 08/04/21 14:37 Coding Level of Care Code D/C DAY MANAGEMENT >30 MINS Diagnoses Ischemic bowel disease K55.9 Diffuse abdominal pain R10.84 GI bleeding K62.5 GI bleed type/associated pathology: anorectal hemorrhage Ascending aortic aneurysm I71.2 Anemia D50.0 Anemia type: iron deficiency Iron deficiency anemia type: chronic blood loss
[2021-08-04] MEDS ORDERED: IRON SUCROSE 200 MG in 0.9 % SODIUM CHLORIDE 100 ML IV ONE (14:00)
== END 2021-08-04 16:33 | disposition home or self-care (01) | DRG 315 ==
LOC: EDINP 16:09 → ED 16:09 → SUATTDRO 21:25 → 2S 07-31 00:55 → 3N 08-01 16:30 → 2N 08-02 14:08

== ENCOUNTER 2022-11-01 10:01 | Inpatient (IN) ==
--- NOTE | 2022-11-01 10:25 | Emergency Department Note ---
Impression & Plan Cardiac arrest, Acute respiratory acidosis, COPD (chronic obstructive pulmonary disease), Hypoxia ED Provider Note NAME: DUDLEY BENITEZ AGE: 77 SEX: F : 1945 ARRIVES VIA: Ambulance INFORMANT: Patient, EMS ED PROVIDER(S): Torres Pradhan DO CHIEF COMPLAINT: Cardiac arrest HPI: The patient is a 77-year-old female who presented to the emergency department for an evaluation of cardiac arrest. The patient was receiving an iron infusion when the patient had a syncopal episode. The patient lost her pulse and received CPR. A CODE BLUE was called then a code purple and the patient became responsive. At this time the patient denies having any chest pain nausea or vomiting. She denies having any fever or recent illnesses. She denies having any lower extremity swelling. Her daughter does give some history and states that she has been receiving iron infusion for anemia. She had endoscopy at [facility]. ROS: See above HPI for pertinent positives & negatives. A total of 10 systems reviewed and were otherwise negative. PAST MEDICAL HISTORY: See Below PAST SURGICAL HISTORY: See Below FAMILY HISTORY: See Below SOCIAL HISTORY: See Below HOME MEDICATIONS: See Below ALLERGIES: See Below VITALS: See Below PHYSICAL EXAMINATION: GENERAL: The patient is awake and alert. She appears somewhat anxious. EYES: The conjunctivae are clear. The pupils are round and reactive. EARS, NOSE, MOUTH AND THROAT: The nose is without any evidence of any deformity. Mucous membranes are moist. Tongue is midline. NECK: The neck is nontender and supple. RESPIRATORY: Shallow respirations were noted with diminished breath sounds throughout. There was mild conversational dyspnea. CARDIOVASCULAR: Tachycardic and irregular heart sounds were noted to auscultation. There is no definite murmur. GASTROINTESTINAL: The abdomen is soft. Abdomen is nontender. MUSCULOSKELETAL/EXTREMITIES: There is no evidence of gross deformity full range of motion is noted in the hips and shoulders. SKIN: There is no obvious evidence of any rash. There are no petechiae, pallor or cyanosis noted. NEUROLOGIC: Patient is awake alert and oriented x3 MEDICAL DECISION MAKING: The patient is a 77-year-old female who presented to the emergency department for an evaluation of difficulty breathing. The patient suffered a cardiac arrest while over the [facility]. The patient does have a history of tobacco use. The patient was placed on supplemental oxygen. I discussed the patient's laboratory and radiographic studies with her. I discussed her condition with the on-call [facility] hospitalist group. They have agreed to evaluate the patient in the emergency department for further management and disposition. Triage Nursing notes reviewed. Prior medical records reviewed Vital Signs: reviewed and remarkable for hypoxia. Differential diagnosis: Cardiac ischemia, aortic dissection, pulmonary embolism, pneumothorax, pneumonia, pericarditis, myocarditis, esophageal rupture, GERD, cholecystitis, pancreatitis, musculoskeletal, as well as other pathologies. ER treatment provided: See below Diagnostics interpreted by me: ECG: EKG was obtained in the emergency department. My interpretation is sinus tachycardia at 106 bpm. PVCs were noted. Low voltage was noted throughout. This was compared to a tracing from September 14, 2021. No specific changes were noted. Cardiac Monitoring: An order was placed for continuous cardiac monitoring. The monitor shows a rate of 84 bpm with sinus rhythm. Laboratory studies: As stated above and show below. Imaging studies: See below. Radiographic imaging was reviewed by myself Consultation(s): I discussed this case with Dr. Treadwell who is on-call for the [facility] hospitalist group. Past Med/Surg History Medical History Age related osteoporosis Angiomyolipoma of left kidney Ascending aortic aneurysm 6.2cm with Ao arch thrombus 05/06/20 on chronic Eliquis Cardiomyopathy Carotid bruit follows at [facility] COPD, mild COVID-19 virus detected 08/26/20 Elevated IOP History of atrial tachycardia Hx of aortic aneurysm reason for eliquis--following with [facility] Lumbar degenerative disc disease Lung nodule, solitary Obesity (BMI 30-39.9) On anticoagulant therapy eliquis bid Pulmonary emphysema mild, no inhalers/nebulizer or oxygen Pulmonary nodule Pyelonephritis Renal mass Smoker unmotivated to quit Spinal stenosis, lumbar region with neurogenic claudication Worst at L4-5 Surgical History History of bilateral tubal ligation (1972) History of cataract surgery bilt History of colonoscopy with polypectomy History of incision and drainage (2016) sebaceous cyst mid back History of removal of cyst off kidney--benign History of tooth extraction all teeth History of wisdom tooth extraction Family History Brother Cancer Father Alcoholism Myocardial infarction Sister Crohn's disease DVT of leg (deep venous thrombosis) Mother Hyperlipidemia Daughter Muscular dystrophy Other No family history of adverse response to anesthesia Denies family history of Ovarian cancer Prostate cancer Breast cancer Colorectal cancer Social History Smoking Status: Current every day smoker Tobacco Type: Cigarettes Cigarettes Per Day: 10 a day; Second Hand Exposure: Yes; Do You Dip or Chew Tobacco: No; Tobacco Cessation Education Requested by Patient: No Hx Alcohol Use: No Hx Substance Use: No Preferred Language: Welsh Communication Ability: Effective Visual Impairment: No Limitations Hearing Ability: Normal 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 Beliefs That Will Affect Care: None Current Living Situation: Alone current occupational status: retired Other Information That Helps Us Care for You: No Feels Safe at Home: Yes Safety Concerns: Feels Safe At This Time Childhood Exposure to Second-Hand Smoke: Yes Diet: regular Dental Care, Regularly: No Physical Activity Frequency: Daily Physical Activity Frequency Comment: has dentures Seatbelt Use: always Sunscreen Use: No Assistive Devices: Denture - Upper, Denture - Lower and Glasses Allergies Allergies Allergy/AdvReac Type Severity Reaction Status Date / Time Fish Containing Products Allergy Severe SWELLING Verified 09/05/22 09:18 THROAT Home Meds Home Medications Medication Instructions Recorded Confirmed aspirin 81 mg tablet,delayed 81 mg PO QAM 08/20/20 09/05/22 release (Adult Aspirin Regimen) nitroglycerin 0.4 % (w/w) rectal 1 inch [place] BID PRN Hemorrhoids 08/25/20 09/05/22 ointment Previous Rx's Medication Instructions Recorded hydrocortisone 2.5 % topical cream 1 applic [place] DAILY PRN hemorrhoids 07/30/21 with perineal applicator #30 grams polyethylene glycol 3350 17 gram 17 g PO TID PRN Constipation #90 ea 08/04/21 oral powder packet (Miralax) sennosides 8.6 mg-docusate sodium 1 tab PO BID PRN Constipation #60 08/04/21 50 mg tablet (Senokot-S) tabs ondansetron HCl 8 mg tablet 8 mg PO Q6H #30 tabs 08/30/21 acetaminophen 325 mg tablet 650 mg PO Q4H PRN pain #10 tabs 09/16/21 oxycodone 5 mg tablet See Rx Instructions PO Q4H #60 tabs 09/17/21 linaclotide 290 mcg capsule 290 mcg PO QAM #30 caps 03/07/22 (Linzess) metoprolol tartrate 50 mg tablet 50 mg PO BID #60 tabs 06/01/22 famotidine 40 mg tablet 40 mg PO PM #30 tabs 08/24/22 losartan 50 mg tablet 50 mg PO DAILY #90 tabs 09/05/22 atorvastatin 40 mg tablet 40 mg PO QAM #90 tabs 09/13/22 pantoprazole 40 mg tablet,delayed 40 mg PO BID #60 tabs 10/19/22 release Results & Data (ED) Vital Signs Vital Signs - 24 hr 11/01/22 10:09 11/01/22 10:13 11/01/22 10:25 Temperature 36.4 C L Temperature Source Oral Pulse Rate 102 H 105 H Pulse Rate from SpO2 Sensor Respiratory Rate 25 H Respiratory Effort / Characteristics Spontaneous Blood Pressure 163/79 H Blood Pressure Mean 107 Pulse Oximetry 92 Oxygen Delivery Method Nasal Cannula Nasal Cannula Oxygen Flow Rate 4 4 Sepsis Recent Fever Within 48 Hours No Sepsis New/Unexplained Change in Mental Status No Sepsis Action Taken by Nursing Physician Notified 11/01/22 10:08 11/01/22 10:15 11/01/22 10:18 Temperature Temperature Source Pulse Rate 104 H 106 H 118 H Pulse Rate from SpO2 Sensor 97 H 106 H 106 H Respiratory Rate 23 26 H 20 Respiratory Effort / Characteristics Blood Pressure Blood Pressure Mean Pulse Oximetry 92 Oxygen Delivery Method Oxygen Flow Rate Sepsis Recent Fever Within 48 Hours Sepsis New/Unexplained Change in Mental Status Sepsis Action Taken by Nursing 11/01/22 10:28 11/01/22 10:28 11/01/22 10:30 Temperature Temperature Source Pulse Rate 117 H 105 H Pulse Rate from SpO2 Sensor Respiratory Rate 21 21 Respiratory Effort / Characteristics Blood Pressure Blood Pressure Mean 43 Pulse Oximetry Oxygen Delivery Method Oxygen Flow Rate Sepsis Recent Fever Within 48 Hours Sepsis New/Unexplained Change in Mental Status Sepsis Action Taken by Nursing 11/01/22 10:45 11/01/22 11:00 11/01/22 11:02 Temperature Temperature Source Pulse Rate 96 H 101 H Pulse Rate from SpO2 Sensor 97 H Respiratory Rate 19 20 Respiratory Effort / Characteristics Blood Pressure 132/65 Blood Pressure Mean 87 Pulse Oximetry 91 100 Oxygen Delivery Method Nasal Cannula Oxygen Flow Rate 2 Sepsis Recent Fever Within 48 Hours Sepsis New/Unexplained Change in Mental Status Sepsis Action Taken by Nursing 11/01/22 11:02 11/01/22 11:15 11/01/22 11:30 Temperature Temperature Source Pulse Rate 109 H 108 H 98 H Pulse Rate from SpO2 Sensor 103 H 110 H 98 H Respiratory Rate 22 22 24 Respiratory Effort / Characteristics Blood Pressure Blood Pressure Mean Pulse Oximetry 99 97 96 Oxygen Delivery Method Oxygen Flow Rate Sepsis Recent Fever Within 48 Hours Sepsis New/Unexplained Change in Mental Status Sepsis Action Taken by Nursing 11/01/22 11:37 11/01/22 11:37 11/01/22 11:45 Temperature Temperature Source Pulse Rate 103 H 97 H Pulse Rate from SpO2 Sensor 107 H 99 H Respiratory Rate 18 17 Respiratory Effort / Characteristics Blood Pressure Blood Pressure Mean Pulse Oximetry 100 94 Oxygen Delivery Method Nasal Cannula Oxygen Flow Rate 4 Sepsis Recent Fever Within 48 Hours Sepsis New/Unexplained Change in Mental Status Sepsis Action Taken by Nursing 11/01/22 11:52 11/01/22 11:52 11/01/22 12:00 Temperature Temperature Source Pulse Rate 107 H Pulse Rate from SpO2 Sensor 106 H Respiratory Rate 23 Respiratory Effort / Characteristics Blood Pressure 108/48 L 102/62 Blood Pressure Mean 68 75 Pulse Oximetry 94 Oxygen Delivery Method Oxygen Flow Rate Sepsis Recent Fever Within 48 Hours Sepsis New/Unexplained Change in Mental Status Sepsis Action Taken by Nursing 11/01/22 12:00 11/01/22 12:30 11/01/22 12:31 Temperature Temperature Source Pulse Rate 99 H 97 H Pulse Rate from SpO2 Sensor 91 H 92 H Respiratory Rate 17 19 Respiratory Effort / Characteristics Blood Pressure 107/42 L Blood Pressure Mean 63 Pulse Oximetry 91 92 Oxygen Delivery Method Nasal Cannula Oxygen Flow Rate 3 Sepsis Recent Fever Within 48 Hours Sepsis New/Unexplained Change in Mental Status Sepsis Action Taken by Nursing 11/01/22 12:31 Temperature Temperature Source Pulse Rate 102 H Pulse Rate from SpO2 Sensor 103 H Respiratory Rate 18 Respiratory Effort / Characteristics Blood Pressure Blood Pressure Mean Pulse Oximetry 90 Oxygen Delivery Method Oxygen Flow Rate Sepsis Recent Fever Within 48 Hours Sepsis New/Unexplained Change in Mental Status Sepsis Action Taken by [facility] Medications Current Medication List: was personally reviewed by me Laboratory Data Attestation: I reviewed the patient's lab results. 11/01/22 10:16 11/01/22 10:16 Lab Results 11/01/22 11/01/22 11/01/22 Range/Units 10:16 10:16 10:16 WBC 8.26 (4.8-10.8) K/ul RBC 4.42 (4.20-5.40) M/uL Hgb 10.1 L (12.0-16.0) g/dl Hct 33.3 L (37.0-47.0) % MCV 75.3 L (80.0-100.0) fL MCH 22.9 L (25.0-34.0) pg MCHC 30.3 L (32.0-36.0) g/dL RDW Std Deviation 45.1 (36.4-46.3) fL RDW Coeff of Jose Ramon 16.6 H (11.5-14.5) % Plt Count 378 (130-400) K/uL MPV 10.2 (9.4-12.4) fL Immature Gran % (Auto) 5.9 % Neut % (Auto) 76.6 % Lymph % (Auto) 16.0 % [place] % (Auto) 0.5 % Eos % (Auto) 0.5 % Baso % (Auto) 0.5 % Neut # (Auto) 6.33 (1.40-6.50) K/uL Lymph # (Auto) 1.32 (1.2-3.4) K/uL [place] # (Auto) 0.04 L (0.11-0.59) K/uL Eos # (Auto) 0.04 (0-0.50) K/uL Baso # (Auto) 0.04 (0-0.2) K/uL Immature Gran # (Auto) 0.49 H (0.01-0.20) K/uL Acanthocytes (Spur) 1+ PT 10.9 (9.0-12.0) Seconds INR 1.0 (0.9-1.1) APTT 21.1 (21.0-31.0) Seconds PTT Ratio 0.7 VBG pH (7.36-7.41) VBG pCO2 (38-50) mmHg VBG pO2 mmHg VBG HCO3 mmol/L VBG O2 Saturation % VBG Base Excess mEq/L Sodium 141 (136-145) mmol/L Potassium 4.1 (3.5-5.1) mmol/L Chloride 111 H (98-107) mmol/L Carbon Dioxide 25 (21-32) mmol/L Anion Gap 5 (3-11) BUN 26 H (6-23) mg/dl Creatinine 1.35 H (0.6-1.2) mg/dl Est Cr Clr Drug Dosing Not Reportable Est GFR ( Amer) 43.2 ml/min Est GFR (Non-Af Amer) 37.2 ml/min BUN/Creatinine Ratio 19.3 (10-20) Glucose 111 H (70-99(Fasting)) mg/dl Calcium 8.9 (8.6-10.3) mg/dl Total Bilirubin 0.4 (0.2-1.0) mg/dl AST 9 L (13-39) U/L ALT 7 (7-52) U/L Alkaline Phosphatase 80 (34-104) U/L Troponin I High Sens 9.0 (0-14) pg/ml B-Natriuretic Peptide (0-100) pg/ml Total Protein 6.7 (6.0-8.3) gm/dl Albumin 3.4 (3.4-5.0) gm/dl Globulin 3.3 (2.5-4.0) gm/dl Albumin/Globulin Ratio 1.0 (0.9-2) Lipase 21 (11-82) U/L SARS-CoV-2, RNA, NAAT (NEGATIVE) 11/01/22 11/01/22 11/01/22 Range/Units 10:16 10:16 11:35 WBC (4.8-10.8) K/ul RBC (4.20-5.40) M/uL Hgb (12.0-16.0) g/dl Hct (37.0-47.0) % MCV (80.0-100.0) fL MCH (25.0-34.0) pg MCHC (32.0-36.0) g/dL RDW Std Deviation (36.4-46.3) fL RDW Coeff of Jose Ramon (11.5-14.5) % Plt Count (130-400) K/uL MPV (9.4-12.4) fL Immature Gran % (Auto) % Neut % (Auto) % Lymph % (Auto) % [place] % (Auto) % Eos % (Auto) % Baso % (Auto) % Neut # (Auto) (1.40-6.50) K/uL Lymph # (Auto) (1.2-3.4) K/uL [place] # (Auto) (0.11-0.59) K/uL Eos # (Auto) (0-0.50) K/uL Baso # (Auto) (0-0.2) K/uL Immature Gran # (Auto) (0.01-0.20) K/uL Acanthocytes (Spur) PT (9.0-12.0) Seconds INR (0.9-1.1) APTT (21.0-31.0) Seconds PTT Ratio VBG pH 7.21 L (7.36-7.41) VBG pCO2 60 H (38-50) mmHg VBG pO2 18 mmHg VBG HCO3 24 mmol/L VBG O2 Saturation < 60.0 % VBG Base Excess -4.8 mEq/L Sodium (136-145) mmol/L Potassium (3.5-5.1) mmol/L Chloride (98-107) mmol/L Carbon Dioxide (21-32) mmol/L Anion Gap (3-11) BUN (6-23) mg/dl Creatinine (0.6-1.2) mg/dl Est Cr Clr Drug Dosing Est GFR ( Amer) ml/min Est GFR (Non-Af Amer) ml/min BUN/Creatinine Ratio (10-20) Glucose (70-99(Fasting)) mg/dl Calcium (8.6-10.3) mg/dl Total Bilirubin (0.2-1.0) mg/dl AST (13-39) U/L ALT (7-52) U/L Alkaline Phosphatase (34-104) U/L Troponin I High Sens (0-14) pg/ml B-Natriuretic Peptide 101 H (0-100) pg/ml Total Protein (6.0-8.3) gm/dl Albumin (3.4-5.0) gm/dl Globulin (2.5-4.0) gm/dl Albumin/Globulin Ratio (0.9-2) Lipase (11-82) U/L SARS-CoV-2, RNA, NAAT NEGATIVE (NEGATIVE) Administered Medications Discontinued Medications Ioversol (Optiray 320 500ml) 108 ml IV ONCE ONE Stop: 11/01/22 12:58 Last Admin: 11/01/22 12:57 Dose: 108 ml Documented By: BEN Imaging Data Attestation: I personally reviewed and interpreted this imaging study as follows: My Impression: 1 view chest x-ray was obtained in the emergency department. My interpretation is no free air, no definite trait, final report below Radiologist's Impression: Chest X-Ray 11/01/22 10:12 XR chest 1V portable HISTORY: 77 years-old Female Chest pain, nonspecific COMPARISON: CTA chest 09/13/2021 TECHNIQUE: AP view of the chest FINDINGS: Cardiac silhouette is enlarged. Aneurysmal dilation with tortuosity of the descending thoracic aorta is again noted with a vascular stent graft. Mild left basilar atelectasis. No pneumothorax, pleural effusion, airspace consolidation or overt pulmonary edema. Bones of the chest appear grossly intact. IMPRESSION: No acute process. ACT 112: Negative or not required by law. The above report was generated using voice recognition software. It may contain grammatical, syntax or spelling errors. Electronically signed by: Sage Molina M.D. 11/01/2022 10:43 AM Discharge Plan Visit Data Chief Complaint: Cardiac Assessment ED Provider: Torres Pradhan Discharge Problem: Cardiac arrest, Acute respiratory acidosis, COPD (chronic obstructive pulmonary disease), Hypoxia Patient Disposition: Admitted As Inpatient Discharge Instructions Interventions: ED Discharge Assessment Last Done: 11/01/22 13:50 COPD (chronic obstructive pulmonary disease) Qualifiers: COPD type: unspecified COPD Qualified Code(s): J44.9 - Chronic obstructive pulmonary disease, unspecified
[2022-11-01 10:33] LABS: Base Excess VBG -4.8 mEq/L; HCO3 VBG 24 mmol/L; Oxygen Saturation VBG < 60.0 %; PCO2 VBG 60 mmHg (38-50); PO2 VBG 18 mmHg; pH VBG 7.21 (7.36-7.41)
--- NOTE | 2022-11-01 10:43 | Electrocardiogram Report ---
Test Reason : Blood Pressure : / mmHG Vent. Rate : 106 BPM Atrial Rate : 106 BPM P-R Int : 174 ms QRS Dur : 070 ms QT Int : 344 ms P-R-T Axes : 088 026 052 degrees QTc Int : 456 ms Sinus tachycardia with occasional Premature ventricular complexes Low voltage QRS Abnormal ECG When compared with ECG of 14-SEP-2021 08:46, T wave inversion now evident in Anterior leads Confirmed by Allan Jensen [id number]) on 11/01/2022 10:42:30 AM Referred By: Confirmed By:Jay Jensen
--- NOTE | 2022-11-01 10:44 | XRay Report ---
XR chest 1V portable HISTORY: 77 years-old Female Chest pain, nonspecific COMPARISON: CTA chest 09/13/2021 TECHNIQUE: AP view of the chest FINDINGS: Cardiac silhouette is enlarged. Aneurysmal dilation with tortuosity of the descending thoracic aorta is again noted with a vascular stent graft. Mild left basilar atelectasis. No pneumothorax, pleural e ffusion, airspace consolidation or overt pulmonary edema. Bones of the chest appear grossly intact. IMPRESSION: No acute process. ACT 112: Negative or not required by law. The above report was generated using voice recognition software. It may contain grammatical, syntax o r spelling errors. Electronically signed by: Sage Molina M.D. 11/01/2022 10:43 AM
[2022-11-01 10:57] LABS: Hematocrit (blood only) 33.3 % (37.0-47.0); Hemoglobin 10.1 g/dl (12.0-16.0); Mean Corpuscular Hemoglobin 22.9 pg (25.0-34.0); Mean Corpuscular Hgb Conc 30.3 g/dL (32.0-36.0); Mean Corpuscular Volume 75.3 fL (80.0-100.0); Mean Platelet Volume 10.2 fL (9.4-12.4); Platelet Count 378 K/uL (130-400); RDW Coefficient of Variation 16.6 % (11.5-14.5); RDW Standard Deviation 45.1 fL (36.4-46.3); Red Blood Count 4.42 M/uL (4.20-5.40); White Blood Count 8.26 K/ul (4.8-10.8)
[2022-11-01 11:02] LABS: Alanine Aminotransferase 7 U/L (7-52); Albumin Level 3.4 gm/dl (3.4-5.0); Alkaline Phosphatase 80 U/L (34-104); Anion Gap 5 (3-11); Aspartate Aminotransferase 9 U/L (13-39); BUN Creatinine Ratio 19.3 (10-20); Bilirubin,Total 0.4 mg/dl (0.2-1.0); Blood Urea Nitrogen 26 mg/dl (6-23); Calcium 8.9 mg/dl (8.6-10.3); Carbon Dioxide 25 mmol/L (21-32); Chloride 111 mmol/L (98-107); Est GFR (African American) 43.2 ml/min; Est GFR (Non-African American) 37.2 ml/min; Globulin 3.3 gm/dl (2.5-4.0); Glucose 111 mg/dl (70-99(Fasting)); Lipase 21 U/L (11-82); Potassium 4.1 mmol/L (3.5-5.1); Sodium 141 mmol/L (136-145); Total Protein 6.7 gm/dl (6.0-8.3)
[2022-11-01 11:20] LABS: Partial Thromboplastin Ratio 0.7; Partial Thromboplastin Time 21.1 Seconds (21.0-31.0); Prothrombin Time 10.9 Seconds (9.0-12.0)
[2022-11-01 11:29] LABS: Acanthocytes 1+; Basophils # (auto) 0.04 K/uL (0-0.2); Basophils % (auto) 0.5 %; Eosinophils # (auto) 0.04 K/uL (0-0.50); Eosinophils % (auto) 0.5 %; Immature Granulocytes # (auto) 0.49 K/uL (0.01-0.20); Immature Granulocytes % (auto) 5.9 %; Lymphocytes # (auto) 1.32 K/uL (1.2-3.4); Monocytes # (auto) 0.04 K/uL (0.11-0.59); Monocytes % (auto) 0.5 %; Neutrophils # (auto) 6.33 K/uL (1.40-6.50); Neutrophils % (auto) 76.6 %
--- NOTE | 2022-11-01 12:45 | History & Physical Report ---
Date of Service November 01, 2022 Assessment & Plan (1) Cardiac arrest: Plan: IMPRESSION: 77-year-old female who underwent out of hospital cardiac arrest while receiving iron infusion therapy requiring inpatient evaluation for underlying causes of the patient's events today. Patient is a significant vasculopath with prior descending and abdominal aortic aneurysmal repairs. * Uncertain of etiology at this point. The patient did have a presyncopal like episode where she felt warm and flushed as well as nauseated prior to losing consciousness. Concerning is that the patient did lose pulses, obviously, and underwent an estimated 2 minutes of chest compressions. After the event, she was awake, alert, and oriented without recollection of the event. * Of concern, the patient certainly may have undergone a bradycardia arrhythmia or simply vasovagal episode, however it is more concerned that she still required chest compressions to resuscitate her. * She felt no palpitations and I see no record of tachycardic dysrhythmias on her history. * Will certainly consult cardiology for their expert input. * Will hold the patient's metoprolol for now pending cardiology evaluation. * Will keep the patient on monitor at all times in the event of a return of dysrhythmia. * Will add echocardiogram for the sake of completion. * Will also scan the patient's chest status post chest compressions in a patient who has grafting from vascular repair. * Thankfully, the patient appears back at her baseline at this time and offers no complaints otherwise. (2) Acute respiratory acidosis: Plan: * Given the VBG pH of 7.21 with isolated elevation of the CO2 of 60 in the absence of serum CO2 elevation, this lends itself to an acute process and may suggest the patient's event may certainly of had a degree of hypoventilatory dysfunction. * Patient is a longstanding smoker with no intent of quitting. While this elevated CO2 could be anticipated in a chronic CO2 retainer, we have no labs to suggest this in the past. * Will repeat ABG to assess after the patient has been awake, alert, and oriented. (3) Hypoxia: Plan: * Status post cardiac arrest. Will assess for underlying etiologies such as shunting. * Her hypoxemia could be driven by her CO2 retention, however we will continue to trend this with ABG. * Given the patient's longstanding history of COPD and significant smoking history, she may not benefit from excessive amounts of oxygen. Would shoot for a O2 goal of 90 to 93%. * Will need to monitor the patient closely as her lungs sound okay on exam right now and I do not appreciate bronchospastic city, however she may require nebulizer treatments given her significant smoking history and recent events today. (4) COPD (chronic obstructive pulmonary disease): Plan: * Without fluctuated pulmonary function testing or other outpatient reports. * She does not utilize inhalers or nebulizers at home. * She is not on home oxygen. * She reports an a.m. cough which clears throughout the day. * She expresses no interest in quitting smoking. (5) Descending aortic arch aneurysm: Plan: * Given the significant history and undergoing chest compressions, will order CTA of the chest and abdomen to evaluate for any injuries. (6) CKD (chronic kidney disease): Plan: * Slight elevation in the patient's creatinine today status post cardiac arrest with chest compressions. * Will provide NSS at 80 mL/h for a total of 1 L. * Will remove the patient's lisinopril given its propensity for nephrotoxicity. (7) Ascending aortic aneurysm: Plan: * As per #6 (8) Smoker unmotivated to quit: Plan: * Encourage smoking cessation. (9) Cardiomyopathy: Plan: * Patient with prior echocardiogram in 11/05 suggesting an EF of 40 to 45% with global hypokinesis and left ventricular hypertrophy. * Will obtain echocardiogram today given the state of events. Plan CODE STATUS - Patient wishes to only undergo 3 rounds of resuscitative efforts in the event of cardiac arrest while inpatient. She declines intubation or mechanical ventilation. This was updated in the patient's chart. VTE prophylaxis - Daily aspirin for now. We will hold pending CTA evaluations in the vasculopathic patient. History of Present Illness Chief Complaint: Cardiac Arrest Primary Care Provider: Gillian Amador MD Patient is a pleasant 77-year-old female with a significant past medical history of cardiomyopathy, COPD, solitary lung nodule, tobacco abuse, history of GI bleeding, ascending aortic aneurysm, spinal stenosis, ischemic bowel disease, esophagitis, thoracic aortic aneurysm, CKD, renal mass, descending aortic aneurysm, anemia due to blood loss, and lumbar degenerative disc disease. Patient was undergoing outpatient infusion of iron earlier this morning when she reports that she developed the sensation of warmness and sickness to her stomach. She felt herself passing out. A CODE BLUE was called and the patient received chest compressions for a time that was estimated to be approximately 2 minutes. The patient received no medications or shocks. She awoke without complaints. Patient was brought to the emergency department where she underwent extensive work-up and was noted to have respiratory acidosis, but otherwise is presently unremarkable laboratory assessment. Upon evaluation in the emergency department, the patient is awake, alert, and oriented. She denies complaints and reports feeling back to baseline at this time. She remembers feeling as though she was going to lose consciousness, and then remembers awakening. Currently, she denies complaints of headaches, dizziness, lightheadedness, chest pain, palpitations, pleuritic pain, hemoptysis, nausea, vomiting, abdominal discomfort, or numbness/weakness to the extremities. The patient reports no similar history of syncopal events in the past. She denies any family history of sudden cardiac . Allergies Allergy/AdvReac Type Severity Reaction Status Date / Time Fish Containing Products Allergy Severe SWELLING Verified 09/05/22 09:18 THROAT Home Medications Medication Instructions Recorded Confirmed Type aspirin 81 mg tablet,delayed 81 mg PO QAM 08/20/20 09/05/22 History release (Adult Aspirin Regimen) nitroglycerin 0.4 % (w/w) rectal 1 inch [place] BID PRN Hemorrhoids 08/25/20 09/05/22 History ointment hydrocortisone 2.5 % topical cream 1 applic [place] DAILY PRN hemorrhoids 07/30/21 09/05/22 Rx with perineal applicator #30 grams polyethylene glycol 3350 17 gram 17 g PO TID PRN Constipation #90 ea 08/04/21 09/05/22 Rx oral powder packet (Miralax) sennosides 8.6 mg-docusate sodium 1 tab PO BID PRN Constipation #60 08/04/21 09/05/22 Rx 50 mg tablet (Senokot-S) tabs ondansetron HCl 8 mg tablet 8 mg PO Q6H #30 tabs 08/30/21 09/05/22 Rx acetaminophen 325 mg tablet 650 mg PO Q4H PRN pain #10 tabs 09/16/21 09/05/22 Rx oxycodone 5 mg tablet See Rx Instructions PO Q4H #60 tabs 09/17/21 09/05/22 Rx linaclotide 290 mcg capsule 290 mcg PO QAM #30 caps 03/07/22 09/05/22 Rx (Linzess) metoprolol tartrate 50 mg tablet 50 mg PO BID #60 tabs 06/01/22 09/05/22 Rx famotidine 40 mg tablet 40 mg PO PM #30 tabs 08/24/22 09/05/22 Rx losartan 50 mg tablet 50 mg PO DAILY #90 tabs 09/05/22 09/05/22 Rx atorvastatin 40 mg tablet 40 mg PO QAM #90 tabs 09/13/22 Rx pantoprazole 40 mg tablet,delayed 40 mg PO BID #60 tabs 10/19/22 Rx release Past Med/Surg History Medical History Age related osteoporosis Angiomyolipoma of left kidney Ascending aortic aneurysm 6.2cm with Ao arch thrombus 05/06/20 on chronic Eliquis Cardiomyopathy Carotid bruit follows at [facility] COPD, mild COVID-19 virus detected 08/26/20 Elevated IOP History of atrial tachycardia Hx of aortic aneurysm reason for eliquis--following with [facility] Lumbar degenerative disc disease Lung nodule, solitary Obesity (BMI 30-39.9) On anticoagulant therapy eliquis bid Pulmonary emphysema mild, no inhalers/nebulizer or oxygen Pulmonary nodule Pyelonephritis Renal mass Smoker unmotivated to quit Spinal stenosis, lumbar region with neurogenic claudication Worst at L4-5 Surgical History History of bilateral tubal ligation (1972) History of cataract surgery bilt History of colonoscopy with polypectomy History of incision and drainage (2016) sebaceous cyst mid back History of removal of cyst off kidney--benign History of tooth extraction all teeth History of wisdom tooth extraction Family History Brother Cancer Father Alcoholism Myocardial infarction Sister Crohn's disease DVT of leg (deep venous thrombosis) Mother Hyperlipidemia Daughter Muscular dystrophy Other No family history of adverse response to anesthesia Denies family history of Ovarian cancer Prostate cancer Breast cancer Colorectal cancer Social History Smoking Status: Current every day smoker Tobacco Type: Cigarettes Cigarettes Per Day: 10 a day; Second Hand Exposure: Yes; Do You Dip or Chew Tobacco: No; Hx Alcohol Use: No Hx Substance Use: No Preferred Language: Slovak Communication Ability: Effective Visual Impairment: No Limitations Hearing Ability: Normal Health Care Facilities Inspector Required: No Beliefs That Will Affect Care: None Current Living Situation: Alone current occupational status: retired Feels Safe at Home: Yes Childhood Exposure to Second-Hand Smoke: Yes Diet: regular Dental Care, Regularly: No Physical Activity Frequency: Daily Physical Activity Frequency Comment: has dentures Seatbelt Use: always Sunscreen Use: No Assistive Devices: Glasses Review of Systems Review of Systems: A complete 10 point review of systems was reviewed with the patient with pertinent positives and negatives as per history of present illness. All else were negative. Physical Exam Physical Exam: VITAL SIGNS - Vital signs and nursing notes were reviewed. GENERAL - 77-year-old female appearing her stated age who is in no acute distress. Communicates well with provider and answers questions appropriately. HEAD - NC/AT. EYES - PERRL with EOMI bilaterally. Sclera anicteric. NOSE - Midline and without cyanosis. MOUTH/OROPHARYNX - Without perioral cyanosis. NECK - Neck with FROM. S LUNGS - Decreased air entry to the bilateral lung montano. No rales or rhonchi noted. No wheezes appreciated. CARDIAC - RRR with S1/S2. No murmur, rubs, or gallops appreciated. No reproducible tenderness to palpation appreciated over the anterior chest wall. ABDOMEN - Abdominal contour Obese without pulsations or visible masses. BS normoactive all four quadrants. No tenderness, palpable masses, hepatosplenomegaly, or ascites noted. EXTREMITIES - No clubbing or peripheral cyanosis. No pretibial edema present. +3/5 radial and dorsalis pedis pulses palpated throughout. +5/5 strength noted in UE/LE bilaterally. NEUROLOGIC - Cranial nerves II through XII grossly intact. Sensory intact to light touch throughout. PSYCH - A&Ox3 and cooperates fully with examiner. Pt is very pleasant and interacts well with examiner. Results & Data Results & Data Vital Signs (Past 12 Hours) Vital Signs Temp Pulse Resp BP Pulse Ox O2 Del Method O2 Flow Rate 11/01/22 11:52 107 H 23 94 11/01/22 11:52 108/48 L 11/01/22 11:45 97 H 17 94 11/01/22 11:37 103 H 18 100 11/01/22 11:37 Nasal Cannula 4 11/01/22 11:30 98 H 24 96 11/01/22 11:15 108 H 22 97 11/01/22 11:02 109 H 22 99 11/01/22 11:02 132/65 11/01/22 11:00 101 H 20 100 Nasal Cannula 2 11/01/22 10:45 96 H 19 91 11/01/22 10:30 105 H 21 11/01/22 10:28 117 H 21 11/01/22 10:18 118 H 20 11/01/22 10:15 106 H 26 H 92 11/01/22 10:08 104 H 23 11/01/22 10:25 Nasal Cannula 4 11/01/22 10:13 105 H 11/01/22 10:09 36.4 C L 102 H 25 H 163/79 H 92 Nasal Cannula 4 Code Status & VTE Plan VTE Prophylaxis Plan VTE Prophylaxis will be ordered: Yes Supervising Physician Co-Signing Physician Notes Patient seen and examined, chart reviewed, case discussed with Son Ennis PA-C and I agree with the assessment and plan as above except as otherwise noted Labs and images reviewed Lashonda is a 77-year-old female with past medical history of COPD, CKD, ischemic bowel disease, spinal stenosis, obesity, emphysema, history of a sending/descending/flap aortic dissection s/p repair who was undergoing a Venofer infusion for iron deficiency anemia as outpatient when she became unresponsive, reportedly 2 minutes of CPR were performed with ROSC. Patient reports prior to passing out she had a feeling of warmth and lightheadedness which spread up her neck right when the infusion was started. She does not remember receiving CPR, then remembers being transported to the ER. She denies chest pain, chest pressure at any point. No shortness of breath. No recent fever/chills. She denies any pain in her shoulder, no pain between her shoulder blades. She does continue to smoke with no interest in quitting, cessation counseling provided. At bedside visit she does not have overt wheezing but lung sounds are globally greatly decreased with slightly prolonged expiration. Heart rate is regular, no murmur appreciated. Patient has intact upper and lower extremity strength, patient has some soft tissue swelling of the lower extremities bilaterally but no pitting edema. On admission patient does appear to have an acute respiratory acidosis, troponin is normal.? Vasovagal versus brief true cardiac arrest. Agree with monitoring on telemetry, trend troponin, obtain echo. Cardiology is consulted, [place] [facility] [place] At time of bedside assessment appears hemodynamically stable and patient feels improved/near her normal baseline. Trend VBG, patient is breathing normally at time of bedside. Do not hyper oxygenate due to COPD physiology. Optimize mag 2.0, potassium 4.0.Given arrest, and history of extensive aortic dissection with ongoing risk factors including tobacco use CTA of chest/abdomen were obtained, these show aneurysmal dilation of the ascending thoracic aorta 4.5 cm, proximal abdominal aorta 5.3 cm, and intact thoracic graft repair with no evidence of endoleak. Bilateral anterior rib fractures are noted likely due to CPR. At 02/2022 vascular assessment ascending aortic aneurysm 4.6 cm, infrarenal 3.4 cm, proximal descending thoracic aneurysm 6.8 cm s/p TEVAR 07/05/2021. 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 Patient was previously on Eliquis this was discontinued due to severe GI bleed. PG Care Time/CCT Total # of Minutes Spent Total Time Spent with Patient: Total time spent is greater than 50% in coordination of care (as documented) at patient's floor/unit and/or counseling patient: Coding Level of Care Code 96368 INT INP/OBS CARE 375MIN Diagnoses Cardiac arrest I46.9 Acute respiratory acidosis J96.02 Hypoxia R09.02 COPD (chronic obstructive pulmonary disease) J44.9 COPD type: unspecified COPD Descending aortic arch aneurysm I71.2 CKD (chronic kidney disease) N18.9 Chronic kidney disease stage: unspecified stage Ascending aortic aneurysm I71.2 Smoker unmotivated to quit F17.200 Cardiomyopathy I42.9 Time Spent (min) 55 (4) COPD (chronic obstructive pulmonary disease) COPD type: unspecified COPD Qualified Code(s): J44.9 - Chronic obstructive pulmonary disease, unspecified (6) CKD (chronic kidney disease) Chronic kidney disease stage: unspecified stage Qualified Code(s): N18.9 - Chronic kidney disease, unspecified
[2022-11-01] MEDS ORDERED: OPTIRAY 320 500ml IV ONE (12:57)
--- NOTE | 2022-11-01 13:54 | CT Scan Report ---
CT ANGIOGRAM OF THE CHEST COMBO CLINICAL HISTORY: Cardiac arrest. History of dissection. COMPARISON STUDY: CT urogram the chest dated 09/05/2021. TECHNIQUE: Before and following the IV administration of 108 cc of Optiray 320, CT angiogram of the c hest was performed from the thoracic inlet to the upper abdomen utilizing the dissection protocol. Im ages are reviewed in the axial, sagittal, and coronal planes. 3-D MIPS images are created and assesse d. IV contrast was administered without complication. A dose lowering technique was utilized adherin g to the principles of ALARA. The examination is degraded by motion artifact. FINDINGS: Thyroid: Imaged portions of the thyroid gland are normal in size and attenuation. Thoracic aorta: There is atherosclerotic calcification of the thoracic aorta. The arch demonstrates s tandard 3-vessel anatomy. No intramural hematoma is identified on the unenhanced series. There is ane urysmal dilatation of the ascending thoracic aorta which measures up to 4.5 cm in diameter. The patie nt is status post stent graft repair of a thoracic aortic aneurysm. This originates at the level of t he left subclavian artery and extends to the diaphragmatic hiatus. The residual aneurysm sac measures 5.0 x 5.6 cm (AP x transverse). There is no evidence of endoleak. Mild stranding around the descendi ng thoracic aorta is likely similar to previous. No dissection is seen. The arch vessels are widely p atent. Pulmonary vasculature: The main pulmonary arteries are dilated indicating pulmonary artery hypertensi on. There are no central filling defects within the pulmonary vessels to suggest pulmonary embolus. N ote that this examination was not protocoled to evaluate for pulmonary emboli. Heart: The heart is enlarged noting trace pericardial effusion. The coronary arteries are densely darren cified. Lungs and pleural spaces: Evaluation of the lung parenchyma is degraded by motion artifact. There is no pneumothorax. Emphysematous change is noted. There is no airspace consolidation typical for pneumo mónica. Foci of scarring/atelectasis are seen throughout both lungs, greatest in the left lung posterior to the descending thoracic aorta. Secretions are noted in the trachea. A 1.4 cm curvilinear nodular density in the left lower lobe on image #175 is previous and may represent round atelectasis. A 1.3 c m lobulated nodule in the right lower lobe in image #148 is unchanged from prior examinations. There is trace left pleural effusion. Mediastinum: There is no mediastinal lymphadenopathy or hematoma. There is mild stranding at the medi astinum. Sherice: Clear. Axillae: There is no axillary lymphadenopathy. Upper abdomen: A 2.8 cm left adrenal adenoma is unchanged, as is a 1.7 cm cystic lesion in the spleen . Aneurysm dilatation of the upper abdominal aorta at/below the diaphragmatic hiatus measures up to 5 .3 cm in diameter. See report of abdominal CT performed concurrently for details and intra-abdominal findings. Skeletal structures: The skeletal structures are osteopenic. There are acute nondisplaced right anter ior 4th through 7th rib fractures. There are also likely acute left anterior 6th and 7th rib fracture s. Spondylotic change and hyperkyphosis is noted in the thoracic spine. No lytic or blastic bony lesi ons are seen. Arthritic change is seen in the shoulders. IMPRESSION: 1. The patient is status post stent graft repair of a thoracic aortic aneurysm. The residual aneurysm sac measures 5.0 x 5.6 cm and there is no evidence of endoleak. 2. There is aneurysmal dilatation of the ascending thoracic aorta which measures up to 4.5 cm, as wel l as aneurysmal dilatation of the proximal abdominal aorta which measures up to 5.3 cm. 3. No dissection is identified. 4. Cardiomegaly and emphysema. 5. There is no airspace consolidation typical for pneumonia. Trace pleural effusion is similar. 7. Acute bilateral anterior rib fractures as above. This is likely related to resuscitation. 8. Mild infiltration of the mediastinum is nonspecific and may be related to resuscitation. No hemato ma is seen. Correlate clinically. 9. A 1.4 cm curvilinear nodular density in the left lower lobe and a 1.3 cm lobulated nodule in the r ight lower lobe are similar to previous. Attention at follow-up is recommended. 10. Additional findings as above. ACT 112: Negative or not required by law. Electronically signed by: Ed Ku M.D. 11/01/2022 1:53 PM
[2022-11-01 14:10] LABS: HCO3 ABG 25 mmol/L (19-24); Oxygen Saturation ABG 94.9 % (90-95); PCO2 ABG 43 mmHg (35-46); PO2 ABG 65 mmHg (80-95); pH ABG 7.38 (7.35-7.45)
[2022-11-01 14:11] LABS: Allen Test Pos (Pos)
--- NOTE | 2022-11-01 14:14 | CT Scan Report ---
CT angio abdomen w con CLINICAL HISTORY: h/o AAA repair s/p arrest today TECHNIQUE: Multidetector row helical CT of the abdomen was performed, following intravenous administr ation of iodinated contrast. No oral contrast was administered. Automated dose lowering techniques an d/or adjustment according to patient size were utilized for this exam. Coronal and sagittal reformati ons were obtained. MIP and 3D volume rendered reconstructions were obtained. Helical axial images of the abdomen were obtained. CT DOSE: 1872.52 mGy.cm Comparison: Comparison is made to CT abdomen pelvis 07/30/2021 FINDINGS: Lower chest: For findings above the diaphragm, please see CT chest performed same day. Liver: Unremarkable. No focal lesions are seen. Gallbladder and biliary tree: No calcified gallstones. Normal caliber wall. No intra- or extrahepatic biliary ductal dilation. Pancreas: Unremarkable, no focal lesions. Spleen: Splenic cysts are seen. Adrenals: Heterogeneous left adrenal nodule is noted, unchanged from prior exam. Kidneys and ureters: Bilateral renal hypodensities are seen, some of which measure greater than simpl e fluid density. Exophytic angiomyolipoma is suggested in the left. Bowel: There is thickening of the colon involving the hepatic flexure. Lymph nodes Retroperitoneal: Unremarkable. Mesenteric: Unremarkable. Peritoneum: Normal. Vessels: Postsurgical changes of the thoracic aorta prosthesis. There is aneurysmal enlargement of th e diaphragmatic hiatus measuring up to 47 mm in diameter as well as in the infrarenal aorta measuring up to 30 mm. A small dissection flap is noted in the distal aorta. Abdominal wall: Unremarkable. Bones: Degenerative changes in the visualized spine. IMPRESSION: Redemonstration of prominent aneurysm at the diaphragmatic hiatus. No evidence of vascular occlusion or active extravasation. A dissection flap in the distal aorta is unchanged from the prior exam. ACT 112: Negative or not required by law. Electronically signed by: Sushil Molina M.D. 11/01/2022 2:12 PM
[2022-11-01] MEDS ORDERED: ACETAMINOPHEN 325 MG TAB PO PRN (14:29)
[2022-11-01] MEDS ORDERED: SODIUM CHLORIDE 0.9% 1000ML 1,000 ML IV SCH (14:29)
--- NOTE | 2022-11-01 15:11 | Cardiology Consultation ---
Date of Consultation November 01, 2022 Assessment & Plan (1) MARBELLA (iron deficiency anemia): (2) Vasovagal syncope: (3) Vascular disease: Plan IMPRESSION: Medically complex 77-year-old female suffering a questionable cardiac arrest during an outpatient iron infusion. Carries a significant history of vascular disease as well as anemia Per chart- patient required 2 minutes of CPR without administration of medications or shocks and regained consciousness. Symptoms certainly sound vasovagal mediated instigated by IV iron, which is a known adverse effect of IV iron. Since admission patient has been feeling back to her baseline and telemetry has been unremarkable. Echo without acute findings- small pericardial effusion likely due to CPR, patient asymptomatic. HS troponin negative x2. PLAN: 1. Hypotensive BP- likely due to IV iron infusion PLUS poor oral intake today, okay to hold metoprolol and Lisinopril at this time. Currently receiving IV hydration. Monitor on telemetry overnight for dysrhythmias. Case discussed with Dr. Durbin- will follow. Supervising Physician Co-Signing Physician Notes Patient was seen and personally examined. Assessment and plan as outlined above. Very complex patient with diffuse vascular disease who suffered an acute bnv-zz-lnudhond cardiac arrest with loss of pulse during iron infusion. Patient received CPR for approximately 2 minutes with spontaneous return of rhythm and consciousness. Initial EKG without acute injury pattern, troponin x2 negative for injury echocardiogram with preserved LV systolic function small pericardial effusion Findings suggest acute hypotensive event with loss of pulse. Iron infusion possible inciting Agree with current plans for hydration holding metoprolol and lisinopril Exam notable only for basilar rhonchi and wheezes minimal chest tenderness despite rib fractures and CPR Cardiology will continue to follow History of Present Illness Reason for Consultation: Cardiac arrest Requesting Physician: Stanley man Attending Physician: Adarsh Early MD History of Present Illness Medically complex 77-year-old female who presented to the [facility] emergency department after experiencing an out of hospital cardiac arrest. Patient was undergoing outpatient iron infusion earlier this morning when she developed a sensation of flushness and nausea. She denied any tunnel vision but "knew she was going to pass out". A CODE BLUE was called and patient received chest compressions for approximately 2 minutes. She did not require any medications or shocks. She awoke without complaint. She was transferred to the emergency department. Blood work revealed a hemoglobin of 10.1, mild renal dysfunction with a creatinine of 1.3 (appears to be at baseline 1.2-1.3), and respiratory acidosis on blood gases. Chest x-ray: unremarkable CTA of the abdomen: showed prominent aneurysm at the diaphragmatic hiatus, no evidence of vascular occlusion or active extravasation. A dissection flap in the distal aorta unchanged from prior imaging. Chest CT: Acute rib fractures likely related to resuscitation, no changes in prior vascular findings. EKG: showing sinus tachycardia with occasional PVCs, 106 bpm Echo: Low normal LVEF of 50 to 54% with normal wall motion. Grade 1 diastolic dysfunction (unchanged from 2020) Small pericardial effusion, not h emodynamically significant- possibly due to resuscitation. Patient normally maintains on lisinopril 10 mg daily and metoprolol tartrate 50 mg twice daily at home. She is also on statin therapy and aspirin. Upon entrance into the room patient resting comfortably in bed without any acute concern. She denies any chest pain or shortness of breath. No musculoskeletal discomfort in her chest, ribs, or back. Denies palpitations. No episodes of lightheadedness. No further presyncopal episodes. Blood pressures are running on the lower side, 90s systolic. Admits to not eating anything prior to the event today. Continues to smoke 1/2 pack of cigarettes per day. Did smoke prior to the event. No alcohol use. 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 a.Follows with vascular surgery, there was consideration for repair with an endovascular device however there was evidence of thrombus in the ascending aorta and arch despite Eliquis therapy. 3.Peripheral vascular disease 4.Questionable history of atrial flutter verses multifocal atrial tachycardia 5.Underlying COPD- Dedicated tobacco user, 1/2 pack of cigarettes daily 6.Chronic low back pain 7. Gastric AVM on EGD with resultant anemia, CKD and B12 deficiency, and poor iron absorption contributing-follows with GI 8. Renal AML status post embolization Allergies Allergy/AdvReac Type Severity Reaction Status Date / Time Fish Containing Products Allergy Severe SWELLING Verified 09/05/22 09:18 THROAT Home Medications Medication Instructions Recorded Confirmed Type aspirin 81 mg tablet,delayed 81 mg PO QAM 08/20/20 09/05/22 History release (Adult Aspirin Regimen) nitroglycerin 0.4 % (w/w) rectal 1 inch FL BID PRN Hemorrhoids 08/25/20 09/05/22 History ointment hydrocortisone 2.5 % topical cream 1 applic FL DAILY PRN hemorrhoids 07/30/21 09/05/22 Rx with perineal applicator #30 grams polyethylene glycol 3350 17 gram 17 g PO TID PRN Constipation #90 ea 08/04/21 09/05/22 Rx oral powder packet (Miralax) sennosides 8.6 mg-docusate sodium 1 tab PO BID PRN Constipation #60 08/04/21 09/05/22 Rx 50 mg tablet (Senokot-S) tabs ondansetron HCl 8 mg tablet 8 mg PO Q6H #30 tabs 08/30/21 09/05/22 Rx acetaminophen 325 mg tablet 650 mg PO Q4H PRN pain #10 tabs 09/16/21 09/05/22 Rx oxycodone 5 mg tablet See Rx Instructions PO Q4H #60 tabs 09/17/21 09/05/22 Rx linaclotide 290 mcg capsule 290 mcg PO QAM #30 caps 03/07/22 09/05/22 Rx (Linzess) metoprolol tartrate 50 mg tablet 50 mg PO BID #60 tabs 06/01/22 09/05/22 Rx famotidine 40 mg tablet 40 mg PO PM #30 tabs 08/24/22 09/05/22 Rx losartan 50 mg tablet 50 mg PO DAILY #90 tabs 09/05/22 09/05/22 Rx atorvastatin 40 mg tablet 40 mg PO QAM #90 tabs 09/13/22 Rx pantoprazole 40 mg tablet,delayed 40 mg PO BID #60 tabs 10/19/22 Rx release Patient History Medical History Age related osteoporosis Angiomyolipoma of left kidney Ascending aortic aneurysm 6.2cm with Ao arch thrombus 05/06/20 on chronic Eliquis Cardiomyopathy Carotid bruit follows at [facility] COPD, mild COVID-19 virus detected 08/26/20 Elevated IOP History of atrial tachycardia Hx of aortic aneurysm reason for eliquis--following with [facility] Lumbar degenerative disc disease Lung nodule, solitary Obesity (BMI 30-39.9) On anticoagulant therapy eliquis bid Pulmonary emphysema mild, no inhalers/nebulizer or oxygen Pulmonary nodule Pyelonephritis Renal mass Smoker unmotivated to quit Spinal stenosis, lumbar region with neurogenic claudication Worst at L4-5 Surgical History History of bilateral tubal ligation (1972) History of cataract surgery bilt History of colonoscopy with polypectomy History of incision and drainage (2016) sebaceous cyst mid back History of removal of cyst off kidney--benign History of tooth extraction all teeth History of wisdom tooth extraction Family History Brother Cancer Father Alcoholism Myocardial infarction Sister Crohn's disease DVT of leg (deep venous thrombosis) Mother Hyperlipidemia Daughter Muscular dystrophy Other No family history of adverse response to anesthesia Denies family history of Ovarian cancer Prostate cancer Breast cancer Colorectal cancer Social History Smoking Status: Current every day smoker Tobacco Type: Cigarettes Cigarettes Per Day: 10 a day; Second Hand Exposure: Yes; Do You Dip or Chew Tobacco: No; Tobacco Cessation Education Requested by Patient: No Hx Alcohol Use: No Hx Substance Use: No Preferred Language: Persian Communication Ability: Effective Visual Impairment: No Limitations Hearing Ability: Normal Topographical Field Assistant Required: No Beliefs That Will Affect Care: None Current Living Situation: Alone current occupational status: retired Other Information That Helps Us Care for You: No Feels Safe at Home: Yes Safety Concerns: Feels Safe At This Time Childhood Exposure to Second-Hand Smoke: Yes Diet: regular Dental Care, Regularly: No Physical Activity Frequency: Daily Physical Activity Frequency Comment: has dentures Seatbelt Use: always Sunscreen Use: No Assistive Devices: Denture - Upper, Denture - Lower and Glasses Results & Data Vital Signs (Past 12 Hours) Vital Signs Temp Pulse Pulse Resp BP BP Pulse Ox 11/01/22 14:32 11/01/22 14:32 36.6 C 84 20 135/85 91 11/01/22 13:30 81 16 93 11/01/22 13:06 81 29 H 92 11/01/22 13:50 11/01/22 12:31 102 H 18 90 11/01/22 12:31 107/42 L 11/01/22 12:30 97 H 19 92 11/01/22 12:00 99 H 17 91 11/01/22 12:00 102/62 11/01/22 11:52 107 H 23 94 11/01/22 11:52 108/48 L 11/01/22 11:45 97 H 17 94 11/01/22 11:37 103 H 18 100 11/01/22 11:37 11/01/22 11:30 98 H 24 96 11/01/22 11:15 108 H 22 97 11/01/22 11:02 109 H 22 99 11/01/22 11:02 132/65 11/01/22 11:00 101 H 20 100 11/01/22 10:45 96 H 19 91 11/01/22 10:30 105 H 21 11/01/22 10:28 117 H 21 11/01/22 10:18 118 H 20 11/01/22 10:15 106 H 26 H 92 11/01/22 10:08 104 H 23 11/01/22 10:25 11/01/22 10:13 105 H 11/01/22 10:09 36.4 C L 102 H 25 H 163/79 H 92 O2 Del Method O2 Flow Rate 11/01/22 14:32 Nasal Cannula 3 11/01/22 14:32 Nasal Cannula 3 11/01/22 13:30 11/01/22 13:06 11/01/22 13:50 Room Air 11/01/22 12:31 11/01/22 12:31 11/01/22 12:30 11/01/22 12:00 Nasal Cannula 3 11/01/22 12:00 11/01/22 11:52 11/01/22 11:52 11/01/22 11:45 11/01/22 11:37 11/01/22 11:37 Nasal Cannula 4 11/01/22 11:30 11/01/22 11:15 11/01/22 11:02 11/01/22 11:02 11/01/22 11:00 Nasal Cannula 2 11/01/22 10:45 11/01/22 10:30 11/01/22 10:28 11/01/22 10:18 11/01/22 10:15 11/01/22 10:08 11/01/22 10:25 Nasal Cannula 4 11/01/22 10:13 11/01/22 10:09 Nasal Cannula 4
[2022-11-01] MEDS ORDERED: FAMOTIDINE 40 MG TABLET PO SCH (21:00)
[2022-11-01] MEDS: PANTOprazole 40 MG TAB PO SCH (21:20)
[2022-11-02 04:05] LABS: Albumin Globulin Ratio 1.1 (0.9-2); Albumin Level 3.1 gm/dl (3.4-5.0); BUN Creatinine Ratio 23.1 (10-20); Bilirubin Direct 0.1 mg/dl (0-0.2); Bilirubin,Total 0.2 mg/dl (0.2-1.0); Calcium 8.6 mg/dl (8.6-10.3); Creatinine Clr Calc Pharmacy 37.5 ml/min; Est GFR (African American) 45.2 ml/min; Globulin 2.8 gm/dl (2.5-4.0); Potassium 4.8 mmol/L (3.5-5.1); Total Protein 5.9 gm/dl (6.0-8.3)
[2022-11-02 04:18] LABS: Basophils # (auto) 0.02 K/uL (0-0.2); Basophils % (auto) 0.2 %; Echinocytes 1+; Hematocrit (blood only) 26.2 % (37.0-47.0); Hemoglobin 7.8 g/dl (12.0-16.0); Immature Granulocytes # (auto) 0.06 K/uL (0.01-0.20); Immature Granulocytes % (auto) 0.5 %; Lymphocytes # (auto) 0.64 K/uL (1.2-3.4); Lymphocytes % (auto) 5.4 %; Mean Corpuscular Hemoglobin 22.4 pg (25.0-34.0); Mean Corpuscular Hgb Conc 29.8 g/dL (32.0-36.0); Mean Corpuscular Volume 75.3 fL (80.0-100.0); Mean Platelet Volume 10.4 fL (9.4-12.4); Monocytes # (auto) 0.51 K/uL (0.11-0.59); Monocytes % (auto) 4.3 %; Neutrophils % (auto) 89.6 %; Ovalocytes 1+; Platelet Count 339 K/uL (130-400); RDW Coefficient of Variation 16.4 % (11.5-14.5); RDW Standard Deviation 44.7 fL (36.4-46.3); Red Blood Count 3.48 M/uL (4.20-5.40); White Blood Count 11.93 K/ul (4.8-10.8)
--- NOTE | 2022-11-02 08:32 | Cardiology Progress Note ---
Date of Service November 02, 2022 Assessment & Plan (1) MARBELLA (iron deficiency anemia): (2) Vasovagal syncope: (3) Vascular disease: Plan IMPRESSION: 77-year-old female with complex history of diffuse vascular disease who suffered an acute out of hospital cardiac arrest with loss of pulse during iron infusion. Patient received approximately 2 minutes of CPR with spontaneous return of rhythm and consciousness. EKG without acute injury pattern and echocardiogram stable with a small pericardial effusion likely secondary to CPR. Telemetry unremarkable. HS troponin negative x4. Event likely vasovagal mediated instigated by IV iron, which is a known adverse effect of IV iron. Since admission patient has been feeling back to her baseline and telemetry has been unremarkable. Echo without acute findings- small pericardial effusion likely due to CPR, patient asymptomatic. Tele unremarkable. PLAN: 1. Blood pressures have remained hypotensive during admission. Okay to remain off of Losartan at this time- can consider restarting as an outpatient. 2. Continue to monitor on telemetry while inpatient. At home normally maintains on metoprolol tartrate 50 mg twice daily, restart at discharge. 2. Hemoglobin low, 7.8, will defer to primary team on management of anemia. Should further iron infusion be required recommend cautious administration with close monitoring of patient. Case discussed with Dr. Durbin- no further recommendations from a cardiac standpoint. Will need PCP follow up at discharge [place] [facility] [place]mission and Anticipated Discharge Date Admission Date: November 01, 2022 Supervising Physician Co-Signing Physician Notes Patient was seen and personally examined. Assessment and plan as outlined above. Very complex patient with diffuse vascular disease who suffered an acute [id number]-moctlhyp cardiac arrest/hemodynamic collapse with loss of pulse during iron infusion. Patient received CPR for approximately 2 minutes with spontaneous return of rhythm and consciousness. Initial EKG without acute injury pattern, troponin x2 negative for injury echocardiogram with preserved LV systolic function small pericardial effusion No subsequent arrhythmias or signs of myocardial injury or ischemia Despite CPR no specific chest pain today there with chronic rhonchorous cough reflective of underlying pulmonary disease Plan as outlined above. Would recommend tobacco cessation and cautious pulmonary toilet given recent CPR. Prompt reporting of any fevers or productive cough Subjective 77-year-old female with complex history of diffuse vascular disease who suffered an acute out of hospital cardiac arrest with loss of pulse during iron infusion. Patient received approximately 2 minutes of CPR with spontaneous return of rhythm and consciousness. EKG without acute injury pattern and echocardiogram stable with a small pericardial effusion likely secondary to CPR. Telemetry unremarkable. 11/02: Lab work this morning revealing low hemoglobin of 7.8. Renal function and electrolytes stable. High-sensitivity troponin negative x4. EKG: NSR 78 bpm Tele: SR 60-80s, short soumya of SVT around 0400. Upon entrance into the room patient resting in bed without acute concern. No chest pain, shortness of breath, palptiations, lightheadedness, or presyncope. Eager for discharge. Review of Systems Review of Systems: All systems reviewed & are unremarkable except as noted in HPI & below Physical Exam Constitutional: WD/WN, vitals as above no acute distress Eyes: PERRL, conjunctivae normal, anicteric sclerae Neck: normal visual inspection and trachea midline Respiratory: Auscultation: + rhonchi (bibasilar ) and + wheezes Cardiovascular: RRR, no murmur, no edema Heart Sounds: normal S1 and normal S2 Vessels: no JVD Extremities: no edema Gastrointestinal (Abdomen): normal bowel sounds, soft, nontender, no hepatosplenomegaly Skin: no rashes, warm and dry Psychiatric: A+Ox3, euthymic affect Results & Data Vital Signs (Past 12 Hours) Vital Signs Temp Pulse Pulse Resp BP Pulse Ox O2 Del Method 11/02/22 07:29 36.6 C 74 18 116/55 L 98 Nasal Cannula 11/02/22 03:35 36.5 C 70 18 104/51 L 94 Nasal Cannula 11/01/22 22:01 64 11/01/22 23:38 36.5 C 83 20 119/66 92 Nasal Cannula 11/01/22 21:00 Nasal Cannula O2 Flow Rate 11/02/22 07:29 2 11/02/22 03:35 3.0 11/01/22 22:01 11/01/22 23:38 3 11/01/22 21:00 3 Laboratory Results Cardiac Enzymes 11/01/22 11/01/22 11/01/22 Range/Units 10:16 10:16 15:12 AST 9 L (13-39) U/L Troponin I High Sens 9.0 6.0 (0-14) pg/ml B-Natriuretic Peptide 101 H (0-100) pg/ml 11/01/22 11/02/22 11/02/22 Range/Units 20:39 03:24 03:24 AST 10 L (13-39) U/L Troponin I High Sens 5.3 5.8 (0-14) pg/ml B-Natriuretic Peptide (0-100) pg/ml Coagulation 11/01/22 11/01/22 Range/Units 10:16 10:16 PT 10.9 (9.0-12.0) Seconds APTT 21.1 (21.0-31.0) Seconds B-Natriuretic Peptide 101 H (0-100) pg/ml Lipids 11/02/22 Range/Units 03:24 Triglycerides 64 (0-150) mg/dl Cholesterol 102 (0-200) mg/dl HDL Cholesterol 34 mg/dl Cholesterol/HDL Ratio 3.0 (0-5) CBC 11/01/22 11/02/22 Range/Units 10:16 03:24 WBC 8.26 11.93 H (4.8-10.8) K/ul RBC 4.42 3.48 L (4.20-5.40) M/uL Hgb 10.1 L 7.8 L (12.0-16.0) g/dl Hct 33.3 L 26.2 L (37.0-47.0) % Plt Count 378 339 (130-400) K/uL Neut # (Auto) 6.33 10.70 H (1.40-6.50) K/uL Lymph # (Auto) 1.32 0.64 L (1.2-3.4) K/uL [place] # (Auto) 0.04 L 0.51 (0.11-0.59) K/uL Eos # (Auto) 0.04 0.00 (0-0.50) K/uL Baso # (Auto) 0.04 0.02 (0-0.2) K/uL Comprehensive Metabolic Panel 11/01/22 11/02/22 Range/Units 10:16 03:24 Sodium 141 138 (136-145) mmol/L Potassium 4.1 4.8 (3.5-5.1) mmol/L Chloride 111 H 109 H (98-107) mmol/L Carbon Dioxide 25 24 (21-32) mmol/L BUN 26 H 30 H (6-23) mg/dl Creatinine 1.35 H 1.30 H (0.6-1.2) mg/dl Glucose 111 H 127 H (70-99(Fasting)) mg/dl Calcium 8.9 8.6 (8.6-10.3) mg/dl Direct Bilirubin 0.1 (0-0.2) mg/dl AST 9 L 10 L (13-39) U/L ALT 7 7 (7-52) U/L Alkaline Phosphatase 80 66 (34-104) U/L Total Protein 6.7 5.9 L (6.0-8.3) gm/dl Albumin 3.4 3.1 L (3.4-5.0) gm/dl Intake and Output 11/01/22 11/02/22 11/02/22 22:59 06:59 14:59 Intake Total 300 / 1720 1420 / 1720 Output Total 300 / 900 600 / 900 Balance 0 / 820 820 / 820 Intake: IV 1000 / 1000 Sodium Chloride 0.9% 1000ML 1, 1000 / 1000 000 ml @ 80 mls/hr IV .[id number] [facility] Rx#:[id number] Oral 300 / 720 420 / 720 Output: Urine 300 / 900 600 / 900 Other: Weight 88.6 kg Weight Measurement Method Built in [facility]
[2022-11-02] MEDS ORDERED: LINACLOTIDE 145 MCG CAPSULE PO SCH (09:00)
[2022-11-02] MEDS ORDERED: ASPIRIN 81 MG ECTAB PO SCH (09:00)
[2022-11-02] MEDS ORDERED: ATORVASTATIN 40 MG TAB PO SCH (09:00)
[2022-11-02] MEDS: PANTOprazole 40 MG TAB PO SCH (09:28)
--- NOTE | 2022-11-02 10:28 | Electrocardiogram Report ---
Test Reason : Blood Pressure : / mmHG Vent. Rate : 078 BPM Atrial Rate : 078 BPM P-R Int : 188 ms QRS Dur : 076 ms QT Int : 386 ms P-R-T Axes : 002 -01 000 degrees QTc Int : 440 ms Normal sinus rhythm Low voltage QRS Borderline ECG When compared with ECG of 01-NOV-2022 10:07, Premature ventricular complexes are no longer Present Nonspecific T wave abnormality no longer evident in Lateral leads Confirmed by Allan Jensen ([id number] on 11/02/2022 10:28:41 AM Referred By: REFERRED SELF Confirmed By:Jay Jensen
--- NOTE | 2022-11-02 14:03 | Discharge Summary ---
Discharge Summary Date of Service November 02, 2022 Notes For Next Care Provider Needs outpatient GI and Hematology follow up for ongoing anemia. Admission HPI Per Admitting Provider Patient is a pleasant 77-year-old female with a significant past medical history of cardiomyopathy, COPD, solitary lung nodule, tobacco abuse, history of GI bleeding, ascending aortic aneurysm, spinal stenosis, ischemic bowel disease, esophagitis, thoracic aortic aneurysm, CKD, renal mass, descending aortic aneurysm, anemia due to blood loss, and lumbar degenerative disc disease. Patient was undergoing outpatient infusion of iron earlier this morning when she reports that she developed the sensation of warmness and sickness to her stomach. She felt herself passing out. A CODE BLUE was called and the patient received chest compressions for a time that was estimated to be approximately 2 minutes. The patient received no medications or shocks. She awoke without complaints. Patient was brought to the emergency department where she underwent extensive work-up and was noted to have respiratory acidosis, but otherwise is presently unremarkable laboratory assessment. Upon evaluation in the emergency department, the patient is awake, alert, and oriented. She denies complaints and reports feeling back to baseline at this time. She remembers feeling as though she was going to lose consciousness, and then remembers awakening. Currently, she denies complaints of headaches, dizziness, lightheadedness, chest pain, palpitations, pleuritic pain, hemoptysis, nausea, vomiting, abdominal discomfort, or numbness/weakness to the extremities. The patient reports no similar history of syncopal events in the past. She denies any family history of sudden cardiac . Principal Dx & Hospital Course #1 = Principal Diagnosis (1) Cardiac arrest: IMPRESSION: 77-year-old female who underwent out of hospital cardiac arrest while receiving iron infusion therapy. Patient is a significant vasculopath with prior descending and abdominal aortic aneurysmal repairs. * Likely vasovagal syncope in setting of IV iron infusion and severe anemia. The patient did have a prodrome where she felt warm and flushed as well as nauseated prior to losing consciousness. Concerning is that the patient did lose pulses, obviously, and underwent an estimated 2 minutes of chest compressions. After the event, she was awake, alert, and oriented without recollection of the event. * no arrhythmias on tele, BPs remained soft-STOP losartan but can continue metoprolol on discharge * no transfusion needed as is asymptomatic, hemodynamically stable off losartan * consult cardiology appreciated-ECHO with small pericardial effusion from CPR, not concerning, stable for dc to home * with rib fractures from CPR, no pain, encouraged deep breathing exercises (2) Acute respiratory acidosis: * Given the VBG pH of 7.21 with isolated elevation of the CO2 of 60 in the absence of serum CO2 elevation, this lends itself to an acute process and may suggest the patient's event may certainly of had a degree of hypoventilatory dysfunction. * Patient is a longstanding smoker with no intent of quitting. While this elevated CO2 could be anticipated in a chronic CO2 retainer, we have no labs to suggest this in the past. * repeat ABG normal (3) Hypoxia: * Status post cardiac arrest. * Given the patient's longstanding history of COPD and significant smoking history, she may not benefit from excessive amounts of oxygen. Weaned off O2 and POx 93% (4) COPD (chronic obstructive pulmonary disease): * Without fluctuated pulmonary function testing or other outpatient reports. * She does not utilize inhalers or nebulizers at home. * She is not on home oxygen. * She reports an a.m. cough which clears throughout the day. * She expresses no interest in quitting smoking. (5) Descending aortic arch aneurysm: * Given the significant history and undergoing chest compressions, will order CTA of the chest and abdomen to evaluate for any injuries. This was negative (6) CKD (chronic kidney disease): * Slight elevation in the patient's creatinine status post cardiac arrest with chest compressions is now resolved after IVFs (7) Ascending aortic aneurysm: * As per #6 (8) Smoker unmotivated to quit: * Encourage smoking cessation. (9) Cardiomyopathy: * Patient with prior echocardiogram in 11/05 suggesting an EF of 40 to 45% with global hypokinesis and left ventricular hypertrophy. * repeat ECHO here now with preserved EF (10) Anemia: hgb 7.8which is down from 10 on admission likely somewhat hemodilutional known Fe def and B12 def, obviously receiving IV iron treatments defer on further IV iron at this time-may try different type of IV iron as outpt d/w Dr. Buenrostro about PRBC transfusion and she said not needed unless patient symptomatic which she is not pt describes some occasional dark stools and BRBPR advised GI f/u as outpt Plan Dispo-stable for dc to home Discharge Exam Constitutional WD/WN, vitals as above Respiratory normal respiratory effort, lungs clear to auscultation Cardiovascular RRR, no murmur, no edema Gastrointestinal (Abdomen) normal bowel sounds, soft, nontender, no hepatosplenomegaly Psychiatric A+Ox3, euthymic affect Updated Medication List Medication Instructions Recorded Confirmed Type aspirin 81 mg tablet,delayed 81 mg PO QAM 08/20/20 09/05/22 History release (Adult Aspirin Regimen) nitroglycerin 0.4 % (w/w) rectal 1 inch MI BID PRN Hemorrhoids 08/25/20 09/05/22 History ointment hydrocortisone 2.5 % topical cream 1 applic MI DAILY PRN hemorrhoids 07/30/21 09/05/22 Rx with perineal applicator #30 grams polyethylene glycol 3350 17 gram 17 g PO TID PRN Constipation #90 ea 08/04/21 09/05/22 Rx oral powder packet (Miralax) sennosides 8.6 mg-docusate sodium 1 tab PO BID PRN Constipation #60 08/04/21 09/05/22 Rx 50 mg tablet (Senokot-S) tabs ondansetron HCl 8 mg tablet 8 mg PO Q6H #30 tabs 08/30/21 09/05/22 Rx acetaminophen 325 mg tablet 650 mg PO Q4H PRN pain #10 tabs 09/16/21 09/05/22 Rx oxycodone 5 mg tablet See Rx Instructions PO Q4H #60 tabs 09/17/21 09/05/22 Rx linaclotide 290 mcg capsule 290 mcg PO QAM #30 caps 03/07/22 09/05/22 Rx (Linzess) metoprolol tartrate 50 mg tablet 50 mg PO BID #60 tabs 06/01/22 09/05/22 Rx famotidine 40 mg tablet 40 mg PO PM #30 tabs 08/24/22 09/05/22 Rx losartan 50 mg tablet 50 mg PO DAILY #90 tabs 09/05/22 09/05/22 Rx atorvastatin 40 mg tablet 40 mg PO QAM #90 tabs 09/13/22 Rx pantoprazole 40 mg tablet,delayed 40 mg PO BID #60 tabs 10/19/22 Rx release Hospital Stay Data Consultations 11/01/22 12:25 ED Decision to Admit Stat 11/01/22 14:29 Consult Cardiology Routine Diagnostic Imagining Performed 11/01/22 12:37 CTA abdomen w con [CT angio abdomen w con] Stat CTA chest dissec wo/w con [CT angio chest dissec wo/w con] Stat Pending Results Patient Have Any Pending Studies at Discharge: No Discharge Instructions Given to Patient (Per Discharging Provider) You were admitted after likely passing out and briefly losing your pulse rather than cardiac arrest. You did have 2 minutes of chest compressions and suffered some broken ribs. Fortunately you are not having any pain with the broken ribs. Please follow up with Dr. Buenrostro of Hematology and with your GI doctor for your anemia. Your losartan will be stopped but you can continue on your metoprolol. Total Time Total Time Spent Total Time Spent (In Minutes): 35 min Coding Level of Care Code 63678 INP/OBS DISCH >30 MIN Diagnoses Cardiac arrest I46.9 Acute respiratory acidosis J96.02 Hypoxia R09.02 COPD (chronic obstructive pulmonary disease) J44.9 COPD type: unspecified COPD Descending aortic arch aneurysm I71.2 CKD (chronic kidney disease) N18.9 Chronic kidney disease stage: unspecified stage Ascending aortic aneurysm I71.2 Smoker unmotivated to quit F17.200 Cardiomyopathy I42.9 Anemia D64.9
--- NOTE | 2022-11-03 13:42 | Coding Query ---
CODING QUERY To promote full compliance with coding requirements relating to patient care, provider participation is requested in all cases of food concession manager uncertainty. Please assist us with the question(s) below: Coding Question(s): There is possible Cardiac Arrest documented and it is not clear if possible Cardiac Arrest has been ruled-out. Please clarify below, in your clinical opinion: ( x) Possible Cardiac Arrest ( ) Cardiac Arrest Ruled-Out ( ) Other: Please Specify Physician's Response(s): Thank you Le Boyer Principal Diagnosis: "that condition established after study, to be chiefly responsible for occasioning the admission of the patient to the hospital for care." Co-Existing Principal Diagnosis: "when two or more diagnoses equally meet the criteria for principal diagnosis as determined by the circumstances of admission, diagnostic work up, and/or therapy provided, and the Alphabetic Index, Tabular List, or another coding guideline does not provide sequencing direction, any one of the diagnoses may be sequenced first." "When the physician has documented what appears to be a current diagnosis in the body of the record, but has not included the diagnosis in the final diagnostic statement, the physician should be asked whether the diagnosis should be added." (Source [facility]oding [facility] 2 QTR90. p3-4) GOGO
--- NOTE | 2022-11-03 14:03 | Coding Query ---
CODING QUERY To promote full compliance with coding requirements relating to patient care, provider participation is requested in all cases of medical billing coder uncertainty. Please assist us with the question(s) below: Coding Question(s): The Discharge Summary documents, "Likely vasovagal syncope in setting of IV iron infusion and severe anemia", and the Cardiology Consultation Supervising Physician documents, "Symptoms certainly sound vasovagal mediated instigated by IV iron, which is a known adverse effect of IV iron", and, "Hypotensive BP- likely due to IV iron infusion PLUS poor oral intake today", and, "Findings suggest acute hypotensive event with loss of pulse. Iron infusion possible inciting", and the 11/02 Cardiology Progress Note documents, "Event likely vasovagal mediated instigated by IV iron, which is a known adverse effect of IV iron. Please specify below, in your clinical opinion: ( x ) Adverse Effect of IV Iron with Both Hypotension and Vasovagal Syncope equally ( ) Adverse Effect of IV Iron with Vasovagal Syncope ( ) Complication of Infusion with Both Hypotension and Vasovagal Syncope equally ( ) Complication of Infusion with Vasovagal Syncope ( ) No Adverse Effect of IV Iron and NO Complication of Infusion. Please Specify the diagnosis causing admission below: ( ) Both Vasovagal Syncope ad Hypotension Equally ( ) Vasovagal Syncope ( ) Other: Please Specify ( ) Other: Please Specify Physician's Response(s): Thank you Le Boyer Principal Diagnosis: "that condition established after study, to be chiefly responsible for occasioning the admission of the patient to the hospital for care." Co-Existing Principal Diagnosis: "when two or more diagnoses equally meet the criteria for principal diagnosis as determined by the circumstances of admission, diagnostic work up, and/or therapy provided, and the Alphabetic Index, Tabular List, or another coding guideline does not provide sequencing direction, any one of the diagnoses may be sequenced first." "When the physician has documented what appears to be a current diagnosis in the body of the record, but has not included the diagnosis in the final diagnostic statement, the physician should be asked whether the diagnosis should be added." (Source [facility]oding [facility] 2 QTR90. p3-4) GOGO
== END 2022-11-02 14:53 | disposition home or self-care (01) | DRG 312 ==
LOC: ED 10:01 → SUATTDRO 12:37 → 2E 12:37